=== PATIENT | female | born 1975 | race Caucasian/White ===

== ENCOUNTER 2016-10-10 09:41 | Emergency (ER) | payer SELFPAY ==
[~2016-10-10] VITALS: Ht 167.6 cm; Wt 81.6 kg
[2016-10-10 10:00] VITALS: BP 134/68
--- NOTE | 2016-10-10 10:12 | PHYS DOC ---
Past Medical History Past Medical History: Asthma, Other Additional Past Medical Histor: chronic back pain Past Surgical History: Cholecystectomy, Tonsillectomy Alcohol Use: Occasionally Drug Use: None Adult General Chief Complaint Chief Complaint: HAND PROBLEM HPI HPI Patient is a 41 year old female presents to the emergency department states she was walking down the [place] of her mobile home when she tripped over her animal falling hitting her left hand on furniture. Patient states she is having pain and discomfort along the 5th metacarpal area. Patient with good sensation to the left hand. Patient states she is right hand dominant. Review of Systems Review of Systems Constitutional: Denies fever or chills [] Eyes: Denies change in visual acuity, redness, or eye pain [] HENT: Denies nasal congestion or sore throat [] Respiratory: Denies cough or shortness of breath [] Cardiovascular: No additional information not addressed in HPI [] GI: Denies abdominal pain, nausea, vomiting, bloody stools or diarrhea [] : Denies dysuria or hematuria [] Musculoskeletal: Denies back pain. C/o left hand pain Integument: Denies rash or skin lesions [] Neurologic: Denies headache, focal weakness or sensory changes [] Endocrine: Denies polyuria or polydipsia [] Allergies Allergies Allergies Coded Allergies Type Severity Reaction Last Updated Verified morphine Allergy Intermediate Itching 10/27/13 Yes Physical Exam Physical Exam Constitutional: Well developed, well nourished, no acute distress, non-toxic appearance. [] HENT: Normocephalic, atraumatic, bilateral external ears normal, oropharynx moist, no oral exudates, nose normal. [] Eyes: PERRLA, EOMI, conjunctiva normal, no discharge. [] Neck: Normal range of motion, no tenderness, supple, no stridor. [] Cardiovascular:Heart rate regular rhythm, no murmur [] Lungs & Thorax: Bilateral breath sounds clear to auscultation [] Abdomen: Bowel sounds normal, soft, no tenderness, no masses, no pulsatile masses. [] Skin: Warm, dry, no erythema, no rash. [] Back: No tenderness Extremities: Left hand tenderness noted along the 5th metacarpal area with swelling noted, no discoloration noted, no cyanosis, no clubbing, ROM intact, no edema. Good sensation noted to the fingers, patient with full ROM of the left fingers. Neurologic: Alert and oriented X 3, normal motor function, normal sensory function, no focal deficits noted. [] Psychologic: Affect normal, judgement normal, mood normal. [] Current Patient Data Vital Signs Vital Signs Date Time Temp Pulse Resp B/P (MAP) Pulse Ox O2 Delivery O2 Flow Rate FiO2 10/10/16 10:00 98.2 97 18 100 Room Air 98.2 EKG EKG [] Radiology/Procedures Radiology/Procedures [][facility] [address] [place] [address] IMAGING REPORT Signed PATIENT: TARA BARNETT ACCOUNT: [id number] : 1975 LOCATION: ER AGE: 41 SEX: F EXAM STATUS: PRE ER ORD. PHYSICIAN: MAVIS DURAN APRN REASON: tripped hitting hand, hand pain and discomfort PROCEDURE: HAND LEFT 3V Indication: Pain after a fall. Technique: 3 views of the left hand are submitted for review. No comparison is available. Findings: There is an acute traumatic oblique fracture of the fifth metacarpal. There is no extension into the articular surface or significant displacement or angulation. An additional fracture is not identified. Impression: Acute traumatic fracture of the fifth metacarpal. DICTATED and SIGNED BY: BENJA JACOBSON MD DATE: 10/10/16 1006 CC: MAVIS DURAN APRN; NO PCP ~ Course & Med Decision Making Course & Med Decision Making Pertinent Labs and Imaging studies reviewed. (See chart for details) Fracture noted along the 5th metacarpal area. Patient will be placed in ulnar gutter splint. Recommend ice packs on 20 minutes and off 20 minutes several times a day. Elevation as much as possible. Keep the splint in place until you followup with orthopedic. Shins test was negative on encourage her to take ibuprofen 800 mg every 8 hours to help with inflammation and swelling. We' ll also provide her with hydrocodone for severe pain and discomfort. She was instructed this medication will cause drowsiness do not take any be alert and oriented. Patient will be discharged home in stable condition. She is provided as mentioned with orthopedic name and number to follow up with. She was provided with signs and symptoms to return back to emergency department. [] Dragon Disclaimer Dragon Disclaimer This electronic medical record was generated, in whole or in part, using a voice recognition dictation system. Departure Departure Impression: Primary Impression: Fracture of fifth metacarpal bone of left hand Disposition: 01 HOME, SELF-CARE Condition: STABLE Referrals: NO PCP (PCP) BRIGITTE RESENDEZ II, MD Patient Instructions: Hand Fracture, Metacarpals, [id number] Additional Instructions: Activity as tolerated 800 mg every 8 hours with food stop taking few develop an upset stomach. Hydrocodone for severe pain and discomfort. This medication will cause drowsiness do not take any be alert and oriented. Ice packs on 20 minutes and off 20 minutes several times a day Elevation as much as possible Keep the splint in place until you followup with orthopedic Return to emergency department as needed for signs and symptoms that become worse. Scripts Hydrocodone/Apap 5-325 (NORCO 5-325 TABLET) 1 Each Tablet 1 TAB PO PRN Q6HRS Y for PAIN, #15 TAB 0 Refills Prov: MAVIS DURAN APRN 10/10/16 Splinting Splinting : Location: left hand/wrist Hand-Made Type: orthoglass Splint: ulnar Pre-Proc Neuro Vasc Exam: normal Post-Proc Neuro Vasc Exam: normal MAVIS DURAN APRN October 10, 2016 10:12
[2016-10-10] MEDS ORDERED: HYDR-971 PO (10:49)
[2016-10-10] MEDS ORDERED: HYDROcodone/APAP 5/325MG 1 TAB TABLET PO ONE (11:00)
== END 2016-10-10 11:04 | disposition home or self-care (01) ==
LOC: ER 10:35
DX: S62.307A Unspecified fracture of fifth metacarpal bone, left hand, initial encounter for closed fracture (principal); J45.909 Unspecified asthma, uncomplicated; Z88.5 Allergy status to narcotic agent; W01.0XXA Fall on same level from slipping, tripping and stumbling without subsequent striking against object, initial encounter; Y93.89 Activity, other specified; Y99.8 Other external cause status; Y92.028 Other place in mobile home as the place of occurrence of the external cause
CPT/HCPCS: 29075; 73130; 81025; 84703; 99284-25

== ENCOUNTER 2016-11-18 14:24 | Emergency (ER) | payer SELFPAY ==
[~2016-11-18] VITALS: Ht 167.6 cm; Wt 83.9 kg
[~2016-11-18 14:24] MED LIST: HYDR-971 PO
[2016-11-18 14:30] VITALS: BP 141/73
[2016-11-18] MEDS ORDERED: fentaNYL PF VIAL 100 MCG/2 ML VIAL IM ONE (15:00)
[2016-11-18] MEDS ORDERED: LIDOCAINE 1% / SOD BICARB 8.4% 20 ML VIAL. IJ ONE (15:00)
[2016-11-18] MEDS ORDERED: SULF1TAB24 PO (16:00)
[2016-11-18] MEDS ORDERED: HYDR-971 PO (16:00)
--- NOTE | 2016-11-18 16:00 | PHYS DOC ---
Past Medical History Past Medical History: Asthma, Other Additional Past Medical Histor: chronic back pain Past Surgical History: Cholecystectomy, Tonsillectomy Alcohol Use: Rarely Drug Use: None Adult General Chief Complaint Chief Complaint: ABSCESS HPI HPI Patient is a 41 year old female who presents with an abscess on the left pubic region that she's had for 4 days. Patient denies any fever. Review of Systems Review of Systems Constitutional: Denies fever or chills [] Eyes: Denies change in visual acuity, redness, or eye pain [] HENT: Denies nasal congestion or sore throat [] Musculoskeletal: Denies back pain or joint pain [] Integument: Abscess to the left pubic region Neurologic: Denies headache, focal weakness or sensory changes [] Endocrine: Denies polyuria or polydipsia [] Current Medications Current Medications Current Medications Medications (Trade) Dose Ordered Sig/J Luis Start Time Stop Time Status Last Admin Dose Admin Fentanyl Citrate (Fentanyl 2ml Vial) 50 mcg 1X ONCE 11/18/16 15:00 11/18/16 15:01 DC 11/18/16 14:53 50 MCG Lidocaine/Sodium Bicarbonate (Buffered Lidocaine 1%) 20 ml 1X ONCE 11/18/16 15:00 11/18/16 15:01 DC 11/18/16 14:52 20 ML Allergies Allergies Allergies Coded Allergies Type Severity Reaction Last Updated Verified morphine Allergy Intermediate Itching 10/27/13 Yes Physical Exam Physical Exam Constitutional: Well developed, well nourished, no acute distress, non-toxic appearance. [] HENT: Normocephalic, atraumatic, bilateral external ears normal, oropharynx moist, no oral exudates, nose normal. [] Eyes: PERRLA, EOMI, conjunctiva normal, no discharge. [] Skin: Left pubic with a moderately indurated area approximately 5 x 5 cm. The area is warm tender to palpate. The area has cellulitis. The area is fluctuant. Back: No tenderness, no CVA tenderness. [] Extremities: No tenderness, no cyanosis, no clubbing, ROM intact, no edema. [] Neurologic: Alert and oriented X 3, normal motor function, normal sensory function, no focal deficits noted. [] Psychologic: Affect normal, judgement normal, mood normal. [] Current Patient Data Vital Signs Vital Signs Date Time Temp Pulse Resp B/P (MAP) Pulse Ox O2 Delivery O2 Flow Rate FiO2 11/18/16 15:28 16 Room Air 11/18/16 14:30 98.4 99 97 98.4 EKG EKG [] Radiology/Procedures Radiology/Procedures Indication: abscess left pubic region Procedure: The patient was positioned appropriately. Local anesthesia was buffered lidocaine. An incision was then made over the apex of the lesion and mild amount of yellow bloody material was expressed. The drainage cavity was irrigated and packed with sterile gauze. The patients tetanus status updated as needed. The patient tolerated the procedure well. Complications: none.[] Course & Med Decision Making Course & Med Decision Making Pertinent Labs and Imaging studies reviewed. (See chart for details) Patient has an abscess and cellulitis of the left pubic region that was drained by me as noted in procedures. This could've come from ingrown hairs. She was put on Bactrim. Tetanus is up-to-date. She is to return to the ED in 2 days for wound check and packing removal. Dragon Disclaimer Dragon Disclaimer This electronic medical record was generated, in whole or in part, using a voice recognition dictation system. Departure Departure Impression: Primary Impression: Abscess of pubic region Disposition: 01 HOME, SELF-CARE Condition: STABLE Referrals: NO PCP (PCP) Follow up with the Ed in 2 days for wound check Patient Instructions: Abscess, Care After Additional Instructions: You have abscess of the left pubic. Complete your antibiotics Apply warm compresses to the area twice a day Return to the Ed in 2 days for packing removal and wound check Scripts Hydrocodone/Apap 5-325 (NORCO 5-325 TABLET) 1 Each Tablet 1-2 TAB PO Q4-6HRS, #14 TAB Prov: JARRETT BOB APRN 11/18/16 Sulfamethoxazole/Trimethoprim (BACTRIM DS TABLET) 1 Each Tablet 1 TAB PO BID, #20 TAB Prov: JARRETT BOB APRN 11/18/16 JARRETT BOB APRN Nov 18, 2016 16:00
== END 2016-11-18 16:09 | disposition home or self-care (01) ==
LOC: ER 14:24
DX: L02.214 Cutaneous abscess of groin (principal); G89.29 Other chronic pain; J45.909 Unspecified asthma, uncomplicated; Z90.49 Acquired absence of other specified parts of digestive tract; Z88.5 Allergy status to narcotic agent
CPT/HCPCS: 10060; 96372; 99283; J3010

== ENCOUNTER 2016-11-21 18:33 | Emergency (ER) | payer SELFPAY ==
[~2016-11-21 18:33] MED LIST changes: +SULF1TAB24 PO
[2016-11-21 19:11] VITALS: BP 139/78
--- NOTE | 2016-11-21 19:54 | PHYS DOC ---
Past Medical History Past Medical History: Asthma, Other Additional Past Medical Histor: chronic back pain Past Surgical History: Cholecystectomy, Tonsillectomy Alcohol Use: Rarely Drug Use: None Adult General Chief Complaint Chief Complaint: WOUND RECHECK/SUTURE REMOVAL HPI HPI Patient is a 41 year old female who presents for wound check for an abscess that I drained 3 days ago. Patient states the wound is healing well and the packing is still in place. Review of Systems Review of Systems Constitutional: Denies fever or chills [] Eyes: Denies change in visual acuity, redness, or eye pain [] Musculoskeletal: Denies back pain or joint pain [] Integument: Wound check for left groin abscess Neurologic: Denies headache, focal weakness or sensory changes [] Endocrine: Denies polyuria or polydipsia [] Allergies Allergies Allergies Coded Allergies Type Severity Reaction Last Updated Verified morphine Allergy Intermediate Itching 10/27/13 Yes Physical Exam Physical Exam Constitutional: Well developed, well nourished, no acute distress, non-toxic appearance. [] HENT: Normocephalic, atraumatic, bilateral external ears normal, oropharynx moist, no oral exudates, nose normal. [] Skin: Left pubic area with an open wound with packing material. The packing material has mild amount of drainage. There is small amount of erythema around the wound. This erythema is less than the last time I saw patient. There is no warmth over the area. Back: No tenderness, no CVA tenderness. [] Extremities: No tenderness, no cyanosis, no clubbing, ROM intact, no edema. [] Neurologic: Alert and oriented X 3, normal motor function, normal sensory function, no focal deficits noted. [] Psychologic: Affect normal, judgement normal, mood normal. [] Current Patient Data Vital Signs Vital Signs Date Time Temp Pulse Resp B/P (MAP) Pulse Ox O2 Delivery O2 Flow Rate FiO2 11/21/16 19:11 98.4 110 18 96 Room Air 98.4 EKG EKG [] Radiology/Procedures Radiology/Procedures [] Course & Med Decision Making Course & Med Decision Making Pertinent Labs and Imaging studies reviewed. (See chart for details) Patient is in the ED for wound check for an abscess that I drained 3 days ago. Packing was removed from the wound . The area is healing very well. She was encouraged to keep it clean and dry. She is to follow-up with her own PCP in 1- 2 weeks and complete her antibiotics. Tadeo Disclaimer Tadeo Disclaimer This electronic medical record was generated, in whole or in part, using a voice recognition dictation system. Departure Departure Impression: Primary Impression: Wound check, abscess Disposition: 01 HOME, SELF-CARE Condition: STABLE Referrals: NO PCP (PCP) Follow-up with your doctor in 1-2 weeks as needed Patient Instructions: Abscess, Care After Additional Instructions: Keep your wound area clean and dry. Continue taking antibiotics until completed. Follow-up with your doctor in 1-2 weeks. Come back to the ED for any concerning symptoms. JARRETT BOB APRN Nov 21, 2016 19:54
== END 2016-11-21 19:57 | disposition home or self-care (01) ==
LOC: ER 18:33
DX: Z48.01 Encounter for change or removal of surgical wound dressing (principal); L02.214 Cutaneous abscess of groin; J45.909 Unspecified asthma, uncomplicated; G89.29 Other chronic pain; Z88.5 Allergy status to narcotic agent
CPT/HCPCS: 99281

== ENCOUNTER 2016-12-01 19:00 | Inpatient (IN) | payer SELFPAY ==
[~2016-12-01] VITALS: Ht 167.6 cm; Wt 84.4 kg
[2016-12-01] MEDS ORDERED: fentaNYL PF VIAL 100 MCG/2 ML VIAL IV ONE (20:15)
[2016-12-01] MEDS ORDERED: IV NORMAL SALINE 500ML BAG 500 ML IV PRN (20:15)
[2016-12-01] MEDS: IV NORMAL SALINE 1000ML BAG 1,000 ML IV SCH ×3 (20:32→21:03)
[2016-12-01 20:50] LABS: BASO # 0.1 x10^3/uL (0.0-0.2); BASO % 1 % (0-3); EOS % 1 % (0-3); HEMATOCRIT 39.8 % (36.0-47.0); HEMOGLOBIN 13.1 g/dL (12.0-15.5); LYMPH # 1.8 x10^3/uL (1.0-4.8); LYMPH % 12 % (24-48); MEAN CORPUSCULAR HEMOGLOBIN 24 pg (25-35); MEAN CORPUSCULAR HGB CONC 33 g/dL (31-37); MEAN CORPUSCULAR VOLUME 74 fL (79-100); MONO % 6 % (0-9); NEUT % 81 % (31-73); PLATELET COUNT 288 x10^3/uL (140-400); RED BLOOD COUNT 5.42 x10^6/uL (3.50-5.40); RED CELL DISTRIBUTION WIDTH 18.7 % (11.5-14.5); WHITE BLOOD COUNT 15.3 x10^3/uL (4.0-11.0)
--- NOTE | 2016-12-01 21:13 | PHYS DOC ---
Past Medical History Past Medical History: Asthma, Other Additional Past Medical Histor: chronic back pain Past Surgical History: Cholecystectomy, Tonsillectomy Alcohol Use: Rarely Drug Use: None Adult General Chief Complaint Chief Complaint: ABSCESS HPI HPI Patient is a 41 year old female who presents with an abscess on the left groin that began 4 days ago. Patient was in the ED 14 days ago and was seen for an abscess on the left pubic area that we opened up and drained. She was discharged on Bactrim. Patient denies any fever. Review of Systems Review of Systems Constitutional: Denies fever or chills [] Eyes: Denies change in visual acuity, redness, or eye pain [] GI: Denies abdominal pain, nausea, vomiting, bloody stools or diarrhea [] : Denies dysuria or hematuria [] Musculoskeletal: Denies back pain or joint pain [] Integument: Left groin abscess Neurologic: Denies headache, focal weakness or sensory changes [] Endocrine: Denies polyuria or polydipsia [] Current Medications Current Medications Current Medications Medications (Trade) Dose Ordered Sig/J Luis Start Time Stop Time Status Last Admin Dose Admin Fentanyl Citrate (Fentanyl 2ml Vial) 50 mcg 1X ONCE 12/01/16 20:15 12/01/16 20:16 DC 12/01/16 20:33 50 MCG Sodium Chloride 500 ml @ 1,000 mls/hr PRN Q30MIN PRN 12/01/16 20:15 12/01/16 22:37 1,000 MLS/HR Allergies Allergies Allergies Coded Allergies Type Severity Reaction Last Updated Verified morphine Allergy Intermediate Itching 10/27/13 Yes Physical Exam Physical Exam Constitutional: Well developed, well nourished, no acute distress, non-toxic appearance. [] HENT: Normocephalic, atraumatic, bilateral external ears normal, oropharynx moist, no oral exudates, nose normal. [] Eyes: PERRLA, EOMI, conjunctiva normal, no discharge. [] Neck: Normal range of motion, no tenderness, supple, no stridor. [] Cardiovascular:Heart rate regular rhythm, no murmur [] Lungs & Thorax: Bilateral breath sounds clear to auscultation [] Abdomen: Bowel sounds normal, soft, no tenderness, no masses, no pulsatile masses. [] Skin: Left groin with an indurated area approximately 5 x 3 cm. The area has moderate cellulitis. It warm to touch. The center of the area is fluctuant but the surrounding area is very firm. Back: No tenderness, no CVA tenderness. [] Extremities: No tenderness, no cyanosis, no clubbing, ROM intact, no edema. [] Neurologic: Alert and oriented X 3, normal motor function, normal sensory function, no focal deficits noted. [] Psychologic: Affect normal, judgement normal, mood normal. [] Current Patient Data Vital Signs Vital Signs Date Time Temp Pulse Resp B/P (MAP) Pulse Ox O2 Delivery O2 Flow Rate FiO2 12/01/16 20:03 98.6 104 18 138/71 (93) 95 Room Air 98.6 EKG EKG [] Radiology/Procedures Radiology/Procedures [] Course & Med Decision Making Course & Med Decision Making Pertinent Labs and Imaging studies reviewed. (See chart for details) Patient is in the ED with an abscess on the left groin. She was seen in the ED 14 days ago and was treated with Bactrim for another abscess on the left pubic area. Patient will be admitted considering she just finished antibiotic treatment 4 days ago and has another abscess. Sepsis protocol labs and IV fluids and antibiotics were ordered 20:28Consulted with Dr. Reyes who accepted patient for admission 20:[address] Cleveland who will follow-up with patient. Admitted prior to labs being done but in stable condition. Dragon Disclaimer Dragon Disclaimer This electronic medical record was generated, in whole or in part, using a voice recognition dictation system. Departure Departure Impression: Primary Impression: Abscess of left groin Additional Impression: Cellulitis of left groin Disposition: ADMITTED INPATIENT Admitting Physician: Sumi Reyes Condition: STABLE Referrals: NO PCP (PCP) Problem Qualifiers JARRETT BOB [employer] Dec 01, 2016 21:13
[2016-12-01] MEDS ORDERED: IV NORMAL SALINE 1000ML BAG 1,000 ML IV ONE ×2 (21:15→22:30)
--- NOTE | 2016-12-01 22:26 | PDOC1 ---
History and Physical Date of Admission Date of Admission DATE: 12/01/16 TIME: 22:18 Identification/Chief Complaint Chief Complaint groin pain Problems: Source Source: Chart review, Patient History of Present Illness History of Present Illness left groin abcess, has gotten worse over the past few days, acute pain, and marked induration the patient was in the ER 2 weeks ago for similar, but abcess was medial, nearer the labia, and the area now that is markedly indurated was thought to be a swollen lymph node and was not drained. marked pain, chills, sweats and myalgias, pain was 10, now 8/10 after IV fentanyl she is also grieving a recent miscarriage from about 1 month ago, that is worried was incomplete, and she has not had a D and C Past Medical History Cardiovascular: No pertinent hx Pulmonary: No pertinent hx GI: No pertinent hx Heme/Onc: No pertinent hx Hepatobiliary: No pertinent hx Psych: No pertinent hx Rheumatologic: No pertinent hx Infectious disease: Other ENT: No pertinent hx Renal/: No pertinent hx Endocrine: No pertinent hx Family History Family History: Hypertension Social History Smoke: <1 pack per day ALCOHOL: none Drugs: None Current Problem List Problem List Problems Medical Problems: (1) Abscess of left groin Status: Acute (2) Cellulitis of left groin Status: Acute Problems: Current Medications Current Medications Current Medications Sodium Chloride 1,000 ml @ 2,520 mls/hr Q24M IV Last administered on 20:32; Start 12/01/16 at 20:15; Stop 12/01/16 at 21:15; Status DC Sodium Chloride 500 ml @ 1,000 mls/hr PRN Q30MIN PRN IV SEE COMMENTS; Start at 20:15 Fentanyl Citrate (Fentanyl 2ml Vial) 50 mcg 1X ONCE IV Last administered on 20:33; Start 12/01/16 at 20:15; Stop 12/01/16 at 20:16; Status DC Ondansetron HCl (Zofran) 4 mg PRN Q8HRS PRN IV NAUSEA/VOMITING; Start 12/01/16 at 21:15; Stop 12/02/16 at 21:14 Fentanyl Citrate (Fentanyl 2ml Vial) 50 mcg PRN Q2HR PRN IV SEVERE PAIN; Start 12/01/16 at 21:15; Stop 12/02/16 at 21:14 Clindamycin Phosphate 50 ml @ 100 mls/hr Q8HRS IV ; Start 12/01/16 at 22:00 Ceftriaxone Sodium 1 gm/ Sodium Chloride 50 ml @ 100 mls/hr Q24H IV ; Start 05/09 at 21:00 Sodium Chloride 1,000 ml @ 125 mls/hr 1X ONCE IV ; Start 12/01/16 at 21:15; Stop 12/02/16 at 05:14 Ceftriaxone Sodium 50 ml @ 100 mls/hr 1X ONCE IV ; Start 12/01/16 at 21:30; Stop 12/01/16 at 21:59; Status DC Oxycodone/ Acetaminophen (Percocet 7.5/ 325) 1 tab PRN Q4HRS PRN PO SEVERE PAIN ; Start 12/01/16 at 22:00 Active Scripts Active Call 5-325 Tablet (Acetaminophen/Hydrocodone Bitart) 1 Each Tablet 1-2 Tab PO Q4-6HRS Bactrim Ds Tablet (Sulfamethoxazole/Trimethoprim) 1 Each Tablet 1 Tab PO BID Call 5-325 Tablet (Acetaminophen/Hydrocodone Bitart) 1 Each Tablet 1 Tab PO PRN Q6HRS PRN Allergies Allergies: Coded Allergies: morphine (Verified Allergy, Intermediate, Itching, 10/27/13) ROS General: YES: Chills, Night Sweats, Fatigue, No: Malaise, Appetite, Other PSYCHOLOGICAL ROS: YES: Irritablity, Obsessive thoughts, Sleep disturbances, No: Anxiety, Behavioral Disorder, Concentration difficultie, Decreased libido , Depression, Disorientation, Hallucinations, Hostility, Memory difficulties, Mood Swings, Physical abuse, Sexual abuse, Suicidal ideation Eyes: No Blurry vision, No Decreased vision, No Double vision, No Dry eyes, No Excessive tearing, No Eye Pain, No Itchy Eyes, No Loss of vision, No Photophobia , No Scotomata, No Uses contacts, No Uses glasses, No Other HEENT: No: Heacaches, Visual Changes, Hearing change, Nasal congestion, Nasal discharge, Oral lesions, Sinus pain, Sore Throat, Epistaxis, Sneezing, Snoring, Tinnitus, Vertigo, Vocal changes, Other Respiratory: YES: Cough, No: Hemoptysis, Orthopnea, Pleuritic Pain, Shortness of breath, SOB with excertion, Sputum Changes, Stridor, Tachypnea, Wheezing, Other Cardiovascular: No Chest Pain, No Palpitations, No Orthopnea, No Paroxysmal Noc. Dyspnea, No Edema, No Lt Headedness, No Other Gastrointestinal: No Nausea, No Vomiting, No Abdominal Pain, No Diarrhea, No Constipation, No Melena, No Hematochezia, No Other Genitourinary: No Dysuria, No Frequency, No Incontinence, No Hematuria, No Retention, No Discharge, No Urgency, No Pain, No Flank Pain, No Other, No , No , No , No , No , No , No Musculoskeletal: No Gait Disturbance, No Joint Pain, No Joint Stiffness, No Joint Swelling, No Muscle Pain, No Muscular Weakness, No Pain In:, No Swelling In:, No Other Neurological: No Behavorial Changes, No Bowel/Bladder ControlChng, No Confusion , No Dizziness, No Gait Disturbance, No Headaches, No Impaired Coord/balance, No Memory Loss, No Numbness/Tingling, No Seizures, No Speech Problems, No Tremors, No Visual Changes, No Weakness, No Other Skin: Yes Dry Skin, Yes Lumps, Yes Rash, Yes Other (groin pain), No Eczema, No Hair Changes, No Mole Changes, No Mottling, No Nail Changes, No Pruritus, No Skin Lesion Changes Physical Exam General: Alert, Oriented X3, Cooperative, moderate distress HEENT: Atraumatic, PERRLA, EOMI Lungs: Normal air movement, Other (minor end wheeze) Heart: S1S2, no gallops, no murmurs Rectal Exam: not examined Extremities: No clubbing, No edema, Normal pulses Skin: Other (large very tender area of induration to left groin, productive of white discharge medially, about 6cm across w/ surrounding cellulitis) Neuro: Sensation intact, Cranial nerves 3-12 NL Vitals Vitals Vital Signs Date Time Temp Pulse Resp B/P (MAP) Pulse Ox O2 Delivery O2 Flow Rate FiO2 12/01/16 21:01 94 16 123/73 (90) 95 Room Air 12/01/16 20:03 98.6 98.6 Labs Labs Laboratory Tests Test 12/01/16 20:31 White Blood Count 15.3 x10^3/uL (4.0-11.0) Red Blood Count 5.42 x10^6/uL (3.50-5.40) Hemoglobin 13.1 g/dL (12.0-15.5) Hematocrit 39.8 % (36.0-47.0) Mean Corpuscular Volume 74 fL (79-100) Mean Corpuscular Hemoglobin 24 pg (25-35) Mean Corpuscular Hemoglobin Concent 33 g/dL (31-37) Red Cell Distribution Width 18.7 % (11.5-14.5) Platelet Count 288 x10^3/uL (140-400) Neutrophils (%) (Auto) 81 % (31-73) Lymphocytes (%) (Auto) 12 % (24-48) Monocytes (%) (Auto) 6 % (0-9) Eosinophils (%) (Auto) 1 % (0-3) Basophils (%) (Auto) 1 % (0-3) Neutrophils # (Auto) 12.4 x10^3uL (1.8-7.7) Lymphocytes # (Auto) 1.8 x10^3/uL (1.0-4.8) Monocytes # (Auto) 1.0 x10^3/uL (0.0-1.1) Eosinophils # (Auto) 0.1 x10^3/uL (0.0-0.7) Basophils # (Auto) 0.1 x10^3/uL (0.0-0.2) Erythrocyte Sedimentation Rate 34 (0-25) Lactic Acid Level 2.3 mmol/L (0.4-2.0) C-Reactive Protein, Quantitative 91.3 mg/L (0-3.3) Procalcitonin < 0.10 ng/mL (0.00-0.10) Laboratory Tests Test 12/01/16 20:31 White Blood Count 15.3 x10^3/uL (4.0-11.0) Red Blood Count 5.42 x10^6/uL (3.50-5.40) Hemoglobin 13.1 g/dL (12.0-15.5) Hematocrit 39.8 % (36.0-47.0) Mean Corpuscular Volume 74 fL (79-100) Mean Corpuscular Hemoglobin 24 pg (25-35) Mean Corpuscular Hemoglobin Concent 33 g/dL (31-37) Red Cell Distribution Width 18.7 % (11.5-14.5) Platelet Count 288 x10^3/uL (140-400) Neutrophils (%) (Auto) 81 % (31-73) Lymphocytes (%) (Auto) 12 % (24-48) Monocytes (%) (Auto) 6 % (0-9) Eosinophils (%) (Auto) 1 % (0-3) Basophils (%) (Auto) 1 % (0-3) Neutrophils # (Auto) 12.4 x10^3uL (1.8-7.7) Lymphocytes # (Auto) 1.8 x10^3/uL (1.0-4.8) Monocytes # (Auto) 1.0 x10^3/uL (0.0-1.1) Eosinophils # (Auto) 0.1 x10^3/uL (0.0-0.7) Basophils # (Auto) 0.1 x10^3/uL (0.0-0.2) Erythrocyte Sedimentation Rate 34 (0-25) Lactic Acid Level 2.3 mmol/L (0.4-2.0) C-Reactive Protein, Quantitative 91.3 mg/L (0-3.3) Procalcitonin < 0.10 ng/mL (0.00-0.10) VTE Prophylaxis Ordered VTE Prophylaxis Devices: Yes VTE Pharmacological Prophylaxi: No Assessment/Plan Assessment/Plan sepsis cellulitis w/ abcess, groin left groin abcess cx taken in ER, rocephin and clinda started surg consulted, will need surgical I+D recent miscarriage, consult [facility] for eval normal grieving response tobaccoism, I offered replacement, recommended cessation admit NOLAN GRIMALDO MD Dec 01, 2016 22:26
[2016-12-01] MEDS ORDERED: NICOTINE 14MG PATCH. TD PRN (22:30)
[2016-12-01] MEDS ORDERED: ALBUTEROL SULFATE 2.5 MG/3 ML NEBU. NEB PRN (22:30)
[2016-12-01] MEDS: ONDANSETRON PF 4 MG/2 ML VIAL. IV PRN (22:40)
[2016-12-01] MEDS: oxyCODONE/APAP 7.5/325 1 TAB TABLET PO PRN (22:41)
[2016-12-01 22:48] VITALS: BP 117/76
[2016-12-01] MEDS ORDERED: KETOROLAC TROMETHAMINE 30 MG/ML INJ. IV ONE (23:00)
[2016-12-01] MEDS ORDERED: IPRATRPIUM/ALBUTEROL 0.5/2.5MG 3 ML NEBU. NEB ONE (23:00)
[2016-12-02] MEDS: CLINDAMYCIN 900MG PREMIX 50 ML IV SCH ×4 (00:20→22:33)
--- NOTE | 2016-12-02 02:17 | ACF ---
Admission Forms Criteria CELLULITIS Clinical Indications for Admission to Inpatient Care (Place 'X' for any and all applicable criteria): Admission is indicated for ANY ONE of the following(1)(2)(3)(4)(5): [ ]I. Limb-threatening infection [ ]II. High-risk comorbid condition as indicated by ANY ONE of the following: [ ]a) Uncontrolled diabetes (eg, HbA1c greater than 10% (0.1)) [ ]b) Cirrhosis [ ]c) Neutropenia [ ]d) Asplenia [ ]e) Immunosuppression [ ]f) Symptomatic heart failure [ ]III. Failure of outpatient therapy as indicated by ALL of the following: [ ]a) Progression or no improvement after adequate trial (minimum of 48 hours, with longer period for stable lower extremity infection) [ ]b) Adequate antibiotic regimen as indicated by use of ANY ONE of the following: [ ]i) First-generation cephalosporin (e.g., cephalexin) [ ]ii) Antistaphylococcal penicillin (e.g., dicloxacillin) [ ]iii) Penicillin-allergic patient regimen (clindamycin, extended-spectrum fluoroquinolone, or doxycycline) [ ]iv) Resistant organism (eg, methicillin-resistant Staphylococcus aureus) regimen (6) [ ]c) Outpatient intravenous therapy regimen is not appropriate due to ANY ONE of the following. (7)(8)(9)(10): [ ]i) It was tried and was not successful (eg, progression of infection). [ ]ii) It is not available or cannot be arranged in a clinically appropriate time frame (e.g., the next day). [ ]iii) Clinical presentation (eg, acuity of infection, rapidity of progression, confirmed or suspected bacteremia) is judged to require ALL of the following: [ ]1) Immediate initiation of intravenous therapy ( eg, cannot wait for next day) [ ]2) Intensity of patient monitoring and observation (eg, vital sign measurement, checks for infection progression) that cannot be provided at other than inpatient level of care [ ]IV. Mental status changes [ ]V. Bacteremia [X]. Hemodynamic instability [ ]VII. Suspected necrotizing soft tissue infection (e.g., gas in tissue)(11)( 12) [ ]VIII. Orbital infection (13)(14) [ ]IX. Associated surgical procedure (e.g., abscess drainage, debridement) not amenable to outpatient, emergency department, or observation care [ ]X. Cutaneous gangrene [ ]XI. High fever (temperature greater than 39.5 degrees C (103.1 degrees F) (oral)) not responsive to outpatient, emergency department, or observation care therapy [ ]XIII. Inpatient admission required rather than observation care (Also use Cellulitis: Observation Care as appropriate) because of ANY ONE of the following : [ ]a) Periorbital or perineal infection that is severe or worsening [ ]b) Severe pain requiring acute inpatient management [ ]c) IV fluid to replace significant ongoing (e.g., for over 24 hours) losses (greater than 3L/m2 per day) [ ]d) Compartment syndrome monitoring (17) [ ]e) Strict or protective (eg, laminar flow) isolation [ ]f) Urgent debridement or skin grafting [ ]g) Bone or joint debridement [ ]h) Immediate inpatient surgery [ ]i) Other condition, treatment or monitoring requiring inpatient admission Extended stay beyond goal length of stay may be needed for (1)(18): [ ]a) Necrotizing soft tissue infection or fasciitis [ ]b) Gram-negative infection [ ]c) Methicillin-resistant Staphylococcal aureus (MRSA) infection [ ]d) Peripheral venous insufficiency with cellulitis [ ]e) Extensive edema [ ]f) Sepsis or continued Hemodynamic instability [ ]g) Continued high fever or mental status change [ ]h) Bacteremia [ ]i) Active serious comorbid conditions ( eg, heart failure, renal insufficiency) The original [employer] content created by [employer] has been revised. The portions of the content which have been revised are identified through the use of italic text or in bold, and [facility] has neither reviewed nor approved the modified material. All other unmodified content is copyright [facility] Please see references footnoted in the original [facility] edition 2016 Admission Criteria Met?: Yes COLLEEN NAVA Dec 02, 2016 02:17
[2016-12-02 03:00] VITALS: BP 105/57
[2016-12-02] MEDS: fentaNYL PF VIAL 100 MCG/2 ML VIAL IV PRN ×3 (04:18→21:07)
[2016-12-02 06:04] LABS: BASO # 0.1 x10^3/uL (0.0-0.2); BASO % 1 % (0-3); EOS % 1 % (0-3); HEMATOCRIT 36.3 % (36.0-47.0); HEMOGLOBIN 12.1 g/dL (12.0-15.5); LYMPH # 2.6 x10^3/uL (1.0-4.8); LYMPH % 37 % (24-48); MEAN CORPUSCULAR HEMOGLOBIN 25 pg (25-35); MEAN CORPUSCULAR HGB CONC 33 g/dL (31-37); MEAN CORPUSCULAR VOLUME 74 fL (79-100); MONO % 10 % (0-9); NEUT % 52 % (31-73); PLATELET COUNT 235 x10^3/uL (140-400); RED CELL DISTRIBUTION WIDTH 18.7 % (11.5-14.5)
[2016-12-02] MEDS: KETOROLAC 15 MG/ML VIAL. IV PRN ×2 (06:05→16:30)
[2016-12-02 06:19] LABS: CALCIUM 7.8 mg/dL (8.5-10.1); CREATININE 0.7 mg/dL (0.6-1.0); GFR 92.7; POTASSIUM 3.5 mmol/L (3.5-5.1)
[2016-12-02 07:00] VITALS: BP_SYST 100; BP_SYST 93; BP_SYST 96; BP_DIAS 48; BP_DIAS 58
[2016-12-02] MEDS: VITAMIN B12,B9,B6 COMPLEX 1 TABLET. PO SCH (09:00)
[2016-12-02] MEDS ORDERED: PHENAZOPYRIDINE 200 MG TABLET. PO ONE (09:30)
--- NOTE | 2016-12-02 09:42 | PDOC ---
PROGRESS NOTES Chief Complaint Chief Complaint sepsis cellulitis w/ abcess, groin recent miscarriage, tobaccoism, History of Present Illness History of Present Illness cx taken in ER, emanuelhin and clinda started surg consulted, will need surgical I+D burning urination today, additional IV fluid, Azo, Vitals Vitals Vital Signs Date Time Temp Pulse Resp B/P (MAP) Pulse Ox O2 Delivery O2 Flow Rate FiO2 12/02/16 07:00 96.6 76 18 93/58 (70) 96 Room Air 96.6 Physical Exam General: Alert, Oriented X3, Cooperative, moderate distress Heart: Regular rate Lungs: Clear Abdomen: Normal bowel sounds Extremities: No clubbing, No edema, Normal pulses Skin: Other (large very tender area of induration to left groin, productive of white discharge medially, about 6cm across w/ surrounding cellulitis) Labs LABS Laboratory Tests Test 12/01/16 20:31 12/01/16 23:00 12/02/16 05:25 White Blood Count 15.3 x10^3/uL (4.0-11.0) 7.0 x10^3/uL (4.0-11.0) Red Blood Count 5.42 x10^6/uL (3.50-5.40) 4.90 x10^6/uL (3.50-5.40) Hemoglobin 13.1 g/dL (12.0-15.5) 12.1 g/dL (12.0-15.5) Hematocrit 39.8 % (36.0-47.0) 36.3 % (36.0-47.0) Mean Corpuscular Volume 74 fL (79-100) 74 fL (79-100) Mean Corpuscular Hemoglobin 24 pg (25-35) 25 pg (25-35) Mean Corpuscular Hemoglobin Concent 33 g/dL (31-37) 33 g/dL (31-37) Red Cell Distribution Width 18.7 % (11.5-14.5) 18.7 % (11.5-14.5) Platelet Count 288 x10^3/uL (140-400) 235 x10^3/uL (140-400) Neutrophils (%) (Auto) 81 % (31-73) 52 % (31-73) Lymphocytes (%) (Auto) 12 % (24-48) 37 % (24-48) Monocytes (%) (Auto) 6 % (0-9) 10 % (0-9) Eosinophils (%) (Auto) 1 % (0-3) 1 % (0-3) Basophils (%) (Auto) 1 % (0-3) 1 % (0-3) Neutrophils # (Auto) 12.4 x10^3uL (1.8-7.7) 3.6 x10^3uL (1.8-7.7) Lymphocytes # (Auto) 1.8 x10^3/uL (1.0-4.8) 2.6 x10^3/uL (1.0-4.8) Monocytes # (Auto) 1.0 x10^3/uL (0.0-1.1) 0.7 x10^3/uL (0.0-1.1) Eosinophils # (Auto) 0.1 x10^3/uL (0.0-0.7) 0.1 x10^3/uL (0.0-0.7) Basophils # (Auto) 0.1 x10^3/uL (0.0-0.2) 0.1 x10^3/uL (0.0-0.2) Erythrocyte Sedimentation Rate 34 (0-25) Lactic Acid Level 2.3 mmol/L (0.4-2.0) 1.1 mmol/L (0.4-2.0) C-Reactive Protein, Quantitative 91.3 mg/L (0-3.3) Procalcitonin < 0.10 ng/mL (0.00-0.10) Sodium Level 142 mmol/L (136-145) Potassium Level 3.5 mmol/L (3.5-5.1) Chloride Level 106 mmol/L (98-107) Carbon Dioxide Level 27 mmol/L (21-32) Anion Gap 9 (6-14) Blood Urea Nitrogen 7 mg/dL (7-20) Creatinine 0.7 mg/dL (0.6-1.0) Estimated GFR (Cockcroft-Gault) 92.7 Glucose Level 165 mg/dL (70-99) Calcium Level 7.8 mg/dL (8.5-10.1) Review of Systems Review of Systems going pain urinary pain no n.v.d + dry mouth Assessment and Plan Assessmemt and Plan Problems Medical Problems: (1) Abscess of left groin Status: Acute (2) Cellulitis of left groin Status: Acute Problems: Comment Review of Relevant I have reviewed the following items nakul (where applicable) has been applied. Labs Laboratory Tests Test 12/01/16 20:31 12/01/16 23:00 12/02/16 05:25 White Blood Count 15.3 x10^3/uL (4.0-11.0) 7.0 x10^3/uL (4.0-11.0) Red Blood Count 5.42 x10^6/uL (3.50-5.40) 4.90 x10^6/uL (3.50-5.40) Hemoglobin 13.1 g/dL (12.0-15.5) 12.1 g/dL (12.0-15.5) Hematocrit 39.8 % (36.0-47.0) 36.3 % (36.0-47.0) Mean Corpuscular Volume 74 fL (79-100) 74 fL (79-100) Mean Corpuscular Hemoglobin 24 pg (25-35) 25 pg (25-35) Mean Corpuscular Hemoglobin Concent 33 g/dL (31-37) 33 g/dL (31-37) Red Cell Distribution Width 18.7 % (11.5-14.5) 18.7 % (11.5-14.5) Platelet Count 288 x10^3/uL (140-400) 235 x10^3/uL (140-400) Neutrophils (%) (Auto) 81 % (31-73) 52 % (31-73) Lymphocytes (%) (Auto) 12 % (24-48) 37 % (24-48) Monocytes (%) (Auto) 6 % (0-9) 10 % (0-9) Eosinophils (%) (Auto) 1 % (0-3) 1 % (0-3) Basophils (%) (Auto) 1 % (0-3) 1 % (0-3) Neutrophils # (Auto) 12.4 x10^3uL (1.8-7.7) 3.6 x10^3uL (1.8-7.7) Lymphocytes # (Auto) 1.8 x10^3/uL (1.0-4.8) 2.6 x10^3/uL (1.0-4.8) Monocytes # (Auto) 1.0 x10^3/uL (0.0-1.1) 0.7 x10^3/uL (0.0-1.1) Eosinophils # (Auto) 0.1 x10^3/uL (0.0-0.7) 0.1 x10^3/uL (0.0-0.7) Basophils # (Auto) 0.1 x10^3/uL (0.0-0.2) 0.1 x10^3/uL (0.0-0.2) Erythrocyte Sedimentation Rate 34 (0-25) Lactic Acid Level 2.3 mmol/L (0.4-2.0) 1.1 mmol/L (0.4-2.0) C-Reactive Protein, Quantitative 91.3 mg/L (0-3.3) Procalcitonin < 0.10 ng/mL (0.00-0.10) Sodium Level 142 mmol/L (136-145) Potassium Level 3.5 mmol/L (3.5-5.1) Chloride Level 106 mmol/L (98-107) Carbon Dioxide Level 27 mmol/L (21-32) Anion Gap 9 (6-14) Blood Urea Nitrogen 7 mg/dL (7-20) Creatinine 0.7 mg/dL (0.6-1.0) Estimated GFR (Cockcroft-Gault) 92.7 Glucose Level 165 mg/dL (70-99) Calcium Level 7.8 mg/dL (8.5-10.1) Laboratory Tests Test 12/01/16 20:31 12/01/16 23:00 12/02/16 05:25 White Blood Count 15.3 x10^3/uL (4.0-11.0) 7.0 x10^3/uL (4.0-11.0) Red Blood Count 5.42 x10^6/uL (3.50-5.40) 4.90 x10^6/uL (3.50-5.40) Hemoglobin 13.1 g/dL (12.0-15.5) 12.1 g/dL (12.0-15.5) Hematocrit 39.8 % (36.0-47.0) 36.3 % (36.0-47.0) Mean Corpuscular Volume 74 fL (79-100) 74 fL (79-100) Mean Corpuscular Hemoglobin 24 pg (25-35) 25 pg (25-35) Mean Corpuscular Hemoglobin Concent 33 g/dL (31-37) 33 g/dL (31-37) Red Cell Distribution Width 18.7 % (11.5-14.5) 18.7 % (11.5-14.5) Platelet Count 288 x10^3/uL (140-400) 235 x10^3/uL (140-400) Neutrophils (%) (Auto) 81 % (31-73) 52 % (31-73) Lymphocytes (%) (Auto) 12 % (24-48) 37 % (24-48) Monocytes (%) (Auto) 6 % (0-9) 10 % (0-9) Eosinophils (%) (Auto) 1 % (0-3) 1 % (0-3) Basophils (%) (Auto) 1 % (0-3) 1 % (0-3) Neutrophils # (Auto) 12.4 x10^3uL (1.8-7.7) 3.6 x10^3uL (1.8-7.7) Lymphocytes # (Auto) 1.8 x10^3/uL (1.0-4.8) 2.6 x10^3/uL (1.0-4.8) Monocytes # (Auto) 1.0 x10^3/uL (0.0-1.1) 0.7 x10^3/uL (0.0-1.1) Eosinophils # (Auto) 0.1 x10^3/uL (0.0-0.7) 0.1 x10^3/uL (0.0-0.7) Basophils # (Auto) 0.1 x10^3/uL (0.0-0.2) 0.1 x10^3/uL (0.0-0.2) Erythrocyte Sedimentation Rate 34 (0-25) Lactic Acid Level 2.3 mmol/L (0.4-2.0) 1.1 mmol/L (0.4-2.0) C-Reactive Protein, Quantitative 91.3 mg/L (0-3.3) Procalcitonin < 0.10 ng/mL (0.00-0.10) Sodium Level 142 mmol/L (136-145) Potassium Level 3.5 mmol/L (3.5-5.1) Chloride Level 106 mmol/L (98-107) Carbon Dioxide Level 27 mmol/L (21-32) Anion Gap 9 (6-14) Blood Urea Nitrogen 7 mg/dL (7-20) Creatinine 0.7 mg/dL (0.6-1.0) Estimated GFR (Cockcroft-Gault) 92.7 Glucose Level 165 mg/dL (70-99) Calcium Level 7.8 mg/dL (8.5-10.1) Medications Current Medications Sodium Chloride 1,000 ml @ 2,520 mls/hr Q24M IV Last administered on 20:32; Start 12/01/16 at 20:15; Stop 12/01/16 at 21:15; Status DC Sodium Chloride 500 ml @ 1,000 mls/hr PRN Q30MIN PRN IV SEE COMMENTS Last administered on 12/01/16 22:37; Start 12/01/16 at 20:15 Fentanyl Citrate (Fentanyl 2ml Vial) 50 mcg 1X ONCE IV Last administered on 20:33; Start 12/01/16 at 20:15; Stop 12/01/16 at 20:16; Status DC Ondansetron HCl (Zofran) 4 mg PRN Q8HRS PRN IV NAUSEA/VOMITING Last administered on 12/01/16 22:40; Start 12/01/16 at 21:15; Stop 12/02/16 at 21:14 Fentanyl Citrate (Fentanyl 2ml Vial) 50 mcg PRN Q2HR PRN IV SEVERE PAIN Last administered on 12/02/16 04:18; Start 12/01/16 at 21:15; Stop 12/02/16 at 21:14 Clindamycin Phosphate 50 ml @ 100 mls/hr Q8HRS IV Last administered on 06:06; Start 12/01/16 at 22:00 Ceftriaxone Sodium 1 gm/ Sodium Chloride 50 ml @ 100 mls/hr Q24H IV ; Start 05/09 at 21:00 Sodium Chloride 1,000 ml @ 125 mls/hr 1X ONCE IV ; Start 12/01/16 at 21:15; Stop 12/02/16 at 05:14; Status DC Ceftriaxone Sodium 50 ml @ 100 mls/hr 1X ONCE IV Last administered on 00:20; Start 12/01/16 at 21:30; Stop 12/01/16 at 21:59; Status DC Oxycodone/ Acetaminophen (Percocet 7.5/ 325) 1 tab PRN Q4HRS PRN PO SEVERE PAIN Last administered on 12/01/16 22:41; Start 12/01/16 at 22:00 Nicotine (Nicoderm Cq 14mg) 1 patch PRN DAILY PRN TD SMOKING CESSATION; Start 12/01/16 at 22:30 Ketorolac Tromethamine (Toradol) 15 mg PRN Q6HRS PRN IV MODERATE PAIN Last administered on 12/02/16 06:05; Start 12/01/16 at 22:30; Stop 12/06/16 at 22:29 Ketorolac Tromethamine (Toradol) 30 mg 1X ONCE IV Last administered on 22:40; Start 12/01/16 at 23:00; Stop 12/01/16 at 23:01; Status DC Sodium Chloride 1,000 ml @ 150 mls/hr 1X ONCE IV Last administered on 22:41; Start 12/01/16 at 22:30; Stop 12/02/16 at 05:09; Status DC Albuterol/ Ipratropium (Duoneb) 3 ml 1X ONCE NEB Last administered on 04:50; Start 12/01/16 at 23:00; Stop 12/01/16 at 23:01; Status DC Albuterol Sulfate (Ventolin Neb Soln) 2.5 mg PRN QID PRN NEB DYSPNEA; Start 04/09 at 22:30 Vitamin B Complex (Folbic Tablet) 1 tab DAILY PO ; Start 12/02/16 at 09:00 Phenazopyridine HCl (Pyridium) 200 mg PRN TID PRN PO URINARY PAIN; Start at 09:30 Phenazopyridine HCl (Pyridium) 200 mg 1X ONCE PO ; Start 12/02/16 at 09:30; Stop 12/02/16 at 09:31; Status DC Active Scripts Active [place] 5-325 Tablet (Acetaminophen/Hydrocodone Bitart) 1 Each Tablet 1-2 Tab PO Q4-6HRS Bactrim Ds Tablet (Sulfamethoxazole/Trimethoprim) 1 Each Tablet 1 Tab PO BID [place] 5-325 Tablet (Acetaminophen/Hydrocodone Bitart) 1 Each Tablet 1 Tab PO PRN Q6HRS PRN Vitals/I & O Vital Sign - Last 24 Hours 12/01/16 12/01/16 12/01/16 12/01/16 20:03 20:31 20:33 21:01 Temp 98.6 98.6 Pulse 104 100 94 Resp 18 16 18 16 B/P (MAP) 138/71 (93) 116/60 (78) 123/73 (90) Pulse Ox 95 100 95 O2 Delivery Room Air Room Air Room Air Room Air 12/01/16 12/01/16 12/01/16 12/01/16 22:41 22:48 22:48 23:39 Temp 98.1 98.1 98.1 98.1 Pulse 97 97 Resp 20 20 B/P (MAP) 117/76 (90) 117/76 (90) Pulse Ox 97 97 O2 Delivery Room Air Room Air Room Air Room Air 12/01/16 12/02/16 12/02/16 12/02/16 23:41 03:00 04:18 04:48 Temp 97.9 97.9 Pulse 75 Resp 20 B/P (MAP) 105/57 (73) Pulse Ox 93 O2 Delivery Room Air Room Air Room Air Room Air 12/02/16 12/02/16 12/02/16 12/02/16 04:57 07:00 07:00 07:00 Temp 97.5 96.6 97.5 96.6 Pulse 76 Resp 18 B/P (MAP) 100/48 (65) 96/58 (71) 93/58 (70) Pulse Ox 97 96 O2 Delivery Room Air Room Air Intake and Output 12/01/16 12/01/16 12/02/16 15:00 23:00 07:00 Intake Total 0 ml Output Total 600 ml Balance -600 ml NOLAN GRIMALDO MD Dec 02, 2016 09:42
[2016-12-02] MEDS: IV NORMAL SALINE 1000ML BAG 1,000 ML IV SCH ×2 (10:43→21:07)
[2016-12-02] MEDS: POTASSIUM CHLORIDE 10MEQ 100 ML IV SCH ×2 (10:44→11:53)
[2016-12-02 10:59] LABS: BILIRUBIN,URINE NEGATIVE (NEG); GLUCOSE,URINE 100 mg/dL (NEG); NITRITE,URINE NEGATIVE (NEG); PROTEIN,URINE 30 mg/dL (NEG-TRACE); UROBILINOGEN,URINE 0.2 mg/dL (0.2 mg/dL)
[2016-12-02 11:06] VITALS: BP 113/71
[2016-12-02] MEDS: ONDANSETRON PF 4 MG/2 ML VIAL. IV PRN ×2 (11:09→21:06)
[2016-12-02 11:10] LABS: BACTERIA,URINE 0 /HPF (0-FEW); RBC,URINE 0 /HPF (0-2); SQUAMOUS EPITHELIAL CELL,UR MANY /LPF; WBC,URINE 0 /HPF (0-4)
--- NOTE | 2016-12-02 13:56 | PDOC2 ---
CONSULT Date of Consult Date of Consult DATE: 12/02/16 TIME: 13:52 Reason for Consult Reason for Consult: left groin abscess Referring Physician Referring Physician: Eric Identification/Chief Complaint Chief Complaint left groin pain Problems: Source Source: Patient History of Present Illness Reason for Visit: 41 yo F with multiple episodes of left groin abscess. Seen in ER on multiple occasions and drained. Presented with recurrence. Pt noted spontaneous drainage after admission. Feels better but still significant pain. Past Medical History Cardiovascular: No pertinent hx Pulmonary: No pertinent hx GI: No pertinent hx Heme/Onc: No pertinent hx Hepatobiliary: No pertinent hx Psych: No pertinent hx Rheumatologic: No pertinent hx Infectious disease: Other ENT: No pertinent hx Renal/: No pertinent hx Endocrine: No pertinent hx Family History Family History: Hypertension Social History <1 pack per day ALCOHOL: none Drugs: None Current Problem List Problem List Problems Medical Problems: (1) Abscess of left groin Status: Acute (2) Cellulitis of left groin Status: Acute Current Medications Current Medications Current Medications Sodium Chloride 1,000 ml @ 2,520 mls/hr Q24M IV Last administered on 20:32; Start 12/01/16 at 20:15; Stop 12/01/16 at 21:15; Status DC Sodium Chloride 500 ml @ 1,000 mls/hr PRN Q30MIN PRN IV SEE COMMENTS Last administered on 12/01/16 22:37; Start 12/01/16 at 20:15 Fentanyl Citrate (Fentanyl 2ml Vial) 50 mcg 1X ONCE IV Last administered on 20:33; Start 12/01/16 at 20:15; Stop 12/01/16 at 20:16; Status DC Ondansetron HCl (Zofran) 4 mg PRN Q8HRS PRN IV NAUSEA/VOMITING Last administered on 12/02/16 11:09; Start 12/01/16 at 21:15; Stop 12/02/16 at 21:14 Fentanyl Citrate (Fentanyl 2ml Vial) 50 mcg PRN Q2HR PRN IV SEVERE PAIN Last administered on 12/02/16 11:10; Start 12/01/16 at 21:15; Stop 12/02/16 at 21:14 Clindamycin Phosphate 50 ml @ 100 mls/hr Q8HRS IV Last administered on 06:06; Start 12/01/16 at 22:00 Ceftriaxone Sodium 1 gm/ Sodium Chloride 50 ml @ 100 mls/hr Q24H IV ; Start 05/09 at 21:00 Sodium Chloride 1,000 ml @ 125 mls/hr 1X ONCE IV ; Start 12/01/16 at 21:15; Stop 12/02/16 at 05:14; Status DC Ceftriaxone Sodium 50 ml @ 100 mls/hr 1X ONCE IV Last administered on 00:20; Start 12/01/16 at 21:30; Stop 12/01/16 at 21:59; Status DC Oxycodone/ Acetaminophen (Percocet 7.5/ 325) 1 tab PRN Q4HRS PRN PO SEVERE PAIN Last administered on 12/01/16 22:41; Start 12/01/16 at 22:00 Nicotine (Nicoderm Cq 14mg) 1 patch PRN DAILY PRN TD SMOKING CESSATION; Start 12/01/16 at 22:30 Ketorolac Tromethamine (Toradol) 15 mg PRN Q6HRS PRN IV MODERATE PAIN Last administered on 12/02/16 06:05; Start 12/01/16 at 22:30; Stop 12/06/16 at 22:29 Ketorolac Tromethamine (Toradol) 30 mg 1X ONCE IV Last administered on 22:40; Start 12/01/16 at 23:00; Stop 12/01/16 at 23:01; Status DC Sodium Chloride 1,000 ml @ 150 mls/hr 1X ONCE IV Last administered on 22:41; Start 12/01/16 at 22:30; Stop 12/02/16 at 05:09; Status DC Albuterol/ Ipratropium (Duoneb) 3 ml 1X ONCE NEB Last administered on 04:50; Start 12/01/16 at 23:00; Stop 12/01/16 at 23:01; Status DC Albuterol Sulfate (Ventolin Neb Soln) 2.5 mg PRN QID PRN NEB DYSPNEA; Start 04/09 at 22:30 Vitamin B Complex (Folbic Tablet) 1 tab DAILY PO ; Start 12/02/16 at 09:00 Phenazopyridine HCl (Pyridium) 200 mg PRN TID PRN PO URINARY PAIN; Start at 09:30 Phenazopyridine HCl (Pyridium) 200 mg 1X ONCE PO Last administered on 11:09; Start 12/02/16 at 09:30; Stop 12/02/16 at 09:31; Status DC Sodium Chloride 1,000 ml @ 125 mls/hr Q8H IV Last administered on 12/02/16 10 :43; Start 12/02/16 at 10:00 Potassium Chloride 100 ml @ 100 mls/hr Q1H IV Last administered on 12/02/16 11:53; Start 12/02/16 at 10:00; Stop 12/02/16 at 11:59; Status DC Active Scripts Active [place] 5-325 Tablet (Acetaminophen/Hydrocodone Bitart) 1 Each Tablet 1-2 Tab PO Q4-6HRS Bactrim Ds Tablet (Sulfamethoxazole/Trimethoprim) 1 Each Tablet 1 Tab PO BID [place] 5-325 Tablet (Acetaminophen/Hydrocodone Bitart) 1 Each Tablet 1 Tab PO PRN Q6HRS PRN Allergies Allergies: Coded Allergies: morphine (Verified Allergy, Intermediate, Itching, 10/27/13) ROS Skin: Yes Other (pain in left groin) Physical Exam General: Alert, Oriented X3, Cooperative, mild distress HEENT: Atraumatic, EOMI, Mucous membr. moist/pink Lungs: Normal air movement Abdomen: Soft, Other (TTP over draining indurated area left groin) Extremities: No clubbing, No cyanosis Skin: No rashes, No breakdown Neuro: Normal speech Psych/Mental Status: Mental status NL, Mood NL Vitals VITALS Vital Signs Date Time Temp Pulse Resp B/P (MAP) Pulse Ox O2 Delivery O2 Flow Rate FiO2 12/02/16 11:40 20 98 Room Air 12/02/16 11:06 97.7 76 113/71 (85) 97.7 Labs Labs Laboratory Tests Test 12/01/16 20:31 12/01/16 23:00 12/02/16 05:25 12/02/16 10:40 White Blood Count 15.3 x10^3/uL (4.0-11.0) 7.0 x10^3/uL (4.0-11.0) Red Blood Count 5.42 x10^6/uL (3.50-5.40) 4.90 x10^6/uL (3.50-5.40) Hemoglobin 13.1 g/dL (12.0-15.5) 12.1 g/dL (12.0-15.5) Hematocrit 39.8 % (36.0-47.0) 36.3 % (36.0-47.0) Mean Corpuscular Volume 74 fL (79-100) 74 fL (79-100) Mean Corpuscular Hemoglobin 24 pg (25-35) 25 pg (25-35) Mean Corpuscular Hemoglobin Concent 33 g/dL (31-37) 33 g/dL (31-37) Red Cell Distribution Width 18.7 % (11.5-14.5) 18.7 % (11.5-14.5) Platelet Count 288 x10^3/uL (140-400) 235 x10^3/uL (140-400) Neutrophils (%) (Auto) 81 % (31-73) 52 % (31-73) Lymphocytes (%) (Auto) 12 % (24-48) 37 % (24-48) Monocytes (%) (Auto) 6 % (0-9) 10 % (0-9) Eosinophils (%) (Auto) 1 % (0-3) 1 % (0-3) Basophils (%) (Auto) 1 % (0-3) 1 % (0-3) Neutrophils # (Auto) 12.4 x10^3uL (1.8-7.7) 3.6 x10^3uL (1.8-7.7) Lymphocytes # (Auto) 1.8 x10^3/uL (1.0-4.8) 2.6 x10^3/uL (1.0-4.8) Monocytes # (Auto) 1.0 x10^3/uL (0.0-1.1) 0.7 x10^3/uL (0.0-1.1) Eosinophils # (Auto) 0.1 x10^3/uL (0.0-0.7) 0.1 x10^3/uL (0.0-0.7) Basophils # (Auto) 0.1 x10^3/uL (0.0-0.2) 0.1 x10^3/uL (0.0-0.2) Erythrocyte Sedimentation Rate 34 (0-25) Lactic Acid Level 2.3 mmol/L (0.4-2.0) 1.1 mmol/L (0.4-2.0) C-Reactive Protein, Quantitative 91.3 mg/L (0-3.3) Procalcitonin < 0.10 ng/mL (0.00-0.10) Sodium Level 142 mmol/L (136-145) Potassium Level 3.5 mmol/L (3.5-5.1) Chloride Level 106 mmol/L (98-107) Carbon Dioxide Level 27 mmol/L (21-32) Anion Gap 9 (6-14) Blood Urea Nitrogen 7 mg/dL (7-20) Creatinine 0.7 mg/dL (0.6-1.0) Estimated GFR (Cockcroft-Gault) 92.7 Glucose Level 165 mg/dL (70-99) Calcium Level 7.8 mg/dL (8.5-10.1) Urine Color Stephanie Urine Clarity Turbid Urine pH 6.0 Urine Specific [place] >=1.030 Urine Protein 30 mg/dL (NEG-TRACE) Urine Glucose (UA) 100 mg/dL (NEG) Urine Ketones (Stick) Negative mg/dL (NEG) Urine Blood Negative (NEG) Urine Nitrite Negative (NEG) Urine Bilirubin Negative (NEG) Urine Urobilinogen Dipstick 0.2 mg/dL (0.2 mg/dL) Urine Leukocyte Esterase Negative (NEG) Urine RBC 0 /HPF (0-2) Urine WBC 0 /HPF (0-4) Urine Squamous Epithelial Cells Many /LPF Urine Bacteria 0 /HPF (0-FEW) Urine Mucus Marked /LPF Laboratory Tests Test 12/01/16 20:31 12/01/16 23:00 12/02/16 05:25 12/02/16 10:40 White Blood Count 15.3 x10^3/uL (4.0-11.0) 7.0 x10^3/uL (4.0-11.0) Red Blood Count 5.42 x10^6/uL (3.50-5.40) 4.90 x10^6/uL (3.50-5.40) Hemoglobin 13.1 g/dL (12.0-15.5) 12.1 g/dL (12.0-15.5) Hematocrit 39.8 % (36.0-47.0) 36.3 % (36.0-47.0) Mean Corpuscular Volume 74 fL (79-100) 74 fL (79-100) Mean Corpuscular Hemoglobin 24 pg (25-35) 25 pg (25-35) Mean Corpuscular Hemoglobin Concent 33 g/dL (31-37) 33 g/dL (31-37) Red Cell Distribution Width 18.7 % (11.5-14.5) 18.7 % (11.5-14.5) Platelet Count 288 x10^3/uL (140-400) 235 x10^3/uL (140-400) Neutrophils (%) (Auto) 81 % (31-73) 52 % (31-73) Lymphocytes (%) (Auto) 12 % (24-48) 37 % (24-48) Monocytes (%) (Auto) 6 % (0-9) 10 % (0-9) Eosinophils (%) (Auto) 1 % (0-3) 1 % (0-3) Basophils (%) (Auto) 1 % (0-3) 1 % (0-3) Neutrophils # (Auto) 12.4 x10^3uL (1.8-7.7) 3.6 x10^3uL (1.8-7.7) Lymphocytes # (Auto) 1.8 x10^3/uL (1.0-4.8) 2.6 x10^3/uL (1.0-4.8) Monocytes # (Auto) 1.0 x10^3/uL (0.0-1.1) 0.7 x10^3/uL (0.0-1.1) Eosinophils # (Auto) 0.1 x10^3/uL (0.0-0.7) 0.1 x10^3/uL (0.0-0.7) Basophils # (Auto) 0.1 x10^3/uL (0.0-0.2) 0.1 x10^3/uL (0.0-0.2) Erythrocyte Sedimentation Rate 34 (0-25) Lactic Acid Level 2.3 mmol/L (0.4-2.0) 1.1 mmol/L (0.4-2.0) C-Reactive Protein, Quantitative 91.3 mg/L (0-3.3) Procalcitonin < 0.10 ng/mL (0.00-0.10) Sodium Level 142 mmol/L (136-145) Potassium Level 3.5 mmol/L (3.5-5.1) Chloride Level 106 mmol/L (98-107) Carbon Dioxide Level 27 mmol/L (21-32) Anion Gap 9 (6-14) Blood Urea Nitrogen 7 mg/dL (7-20) Creatinine 0.7 mg/dL (0.6-1.0) Estimated GFR (Cockcroft-Gault) 92.7 Glucose Level 165 mg/dL (70-99) Calcium Level 7.8 mg/dL (8.5-10.1) Urine Color Stephanie Urine Clarity Turbid Urine pH 6.0 Urine Specific [place] >=1.030 Urine Protein 30 mg/dL (NEG-TRACE) Urine Glucose (UA) 100 mg/dL (NEG) Urine Ketones (Stick) Negative mg/dL (NEG) Urine Blood Negative (NEG) Urine Nitrite Negative (NEG) Urine Bilirubin Negative (NEG) Urine Urobilinogen Dipstick 0.2 mg/dL (0.2 mg/dL) Urine Leukocyte Esterase Negative (NEG) Urine RBC 0 /HPF (0-2) Urine WBC 0 /HPF (0-4) Urine Squamous Epithelial Cells Many /LPF Urine Bacteria 0 /HPF (0-FEW) Urine Mucus Marked /LPF Assessment/Plan Assessment/Plan left groin abscess agree with abx will plan i and D in OR in AM R/B/A d/w pt Thanks for consult! DAMEON SANTIAGO MD Dec 02, 2016 13:56
--- NOTE | 2016-12-02 14:32 | PDOC2 ---
CONSULT Date of Consult Date of Consult DATE: 12/02/16 TIME: 14:26 Reason for Consult Reason for Consult: Left groin abscess Referring Physician Referring Physician: Dr. Reyes Identification/Chief Complaint Chief Complaint Left labial and left groin mass Problems: Source Source: Chart review, Patient History of Present Illness Reason for Visit: 41 y/o presented for 3rd time to ED for labial and groin mass with moderate pain. The Labial abscess was drained in ED and has resolved. She now has Left groin abscess that has started to drain since admission and IV abx. Past Medical History Cardiovascular: No pertinent hx Pulmonary: No pertinent hx GI: No pertinent hx Heme/Onc: No pertinent hx Hepatobiliary: No pertinent hx Psych: No pertinent hx Rheumatologic: No pertinent hx Infectious disease: Other ENT: No pertinent hx Renal/: No pertinent hx Endocrine: No pertinent hx Family History Family History: Hypertension Social History <1 pack per day ALCOHOL: none Drugs: None Current Problem List Problem List Problems Medical Problems: (1) Abscess of left groin Status: Acute (2) Cellulitis of left groin Status: Acute Current Medications Current Medications Current Medications Sodium Chloride 1,000 ml @ 2,520 mls/hr Q24M IV Last administered on 20:32; Start 12/01/16 at 20:15; Stop 12/01/16 at 21:15; Status DC Sodium Chloride 500 ml @ 1,000 mls/hr PRN Q30MIN PRN IV SEE COMMENTS Last administered on 12/01/16 22:37; Start 12/01/16 at 20:15 Fentanyl Citrate (Fentanyl 2ml Vial) 50 mcg 1X ONCE IV Last administered on 20:33; Start 12/01/16 at 20:15; Stop 12/01/16 at 20:16; Status DC Ondansetron HCl (Zofran) 4 mg PRN Q8HRS PRN IV NAUSEA/VOMITING Last administered on 12/02/16 11:09; Start 12/01/16 at 21:15; Stop 12/02/16 at 21:14 Fentanyl Citrate (Fentanyl 2ml Vial) 50 mcg PRN Q2HR PRN IV SEVERE PAIN Last administered on 12/02/16 11:10; Start 12/01/16 at 21:15; Stop 12/02/16 at 21:14 Clindamycin Phosphate 50 ml @ 100 mls/hr Q8HRS IV Last administered on 06:06; Start 12/01/16 at 22:00 Ceftriaxone Sodium 1 gm/ Sodium Chloride 50 ml @ 100 mls/hr Q24H IV ; Start 05/09 at 21:00 Sodium Chloride 1,000 ml @ 125 mls/hr 1X ONCE IV ; Start 12/01/16 at 21:15; Stop 12/02/16 at 05:14; Status DC Ceftriaxone Sodium 50 ml @ 100 mls/hr 1X ONCE IV Last administered on 00:20; Start 12/01/16 at 21:30; Stop 12/01/16 at 21:59; Status DC Oxycodone/ Acetaminophen (Percocet 7.5/ 325) 1 tab PRN Q4HRS PRN PO SEVERE PAIN Last administered on 12/01/16 22:41; Start 12/01/16 at 22:00 Nicotine (Nicoderm Cq 14mg) 1 patch PRN DAILY PRN TD SMOKING CESSATION; Start 12/01/16 at 22:30 Ketorolac Tromethamine (Toradol) 15 mg PRN Q6HRS PRN IV MODERATE PAIN Last administered on 12/02/16 06:05; Start 12/01/16 at 22:30; Stop 12/06/16 at 22:29 Ketorolac Tromethamine (Toradol) 30 mg 1X ONCE IV Last administered on 22:40; Start 12/01/16 at 23:00; Stop 12/01/16 at 23:01; Status DC Sodium Chloride 1,000 ml @ 150 mls/hr 1X ONCE IV Last administered on 22:41; Start 12/01/16 at 22:30; Stop 12/02/16 at 05:09; Status DC Albuterol/ Ipratropium (Duoneb) 3 ml 1X ONCE NEB Last administered on 04:50; Start 12/01/16 at 23:00; Stop 12/01/16 at 23:01; Status DC Albuterol Sulfate (Ventolin Neb Soln) 2.5 mg PRN QID PRN NEB DYSPNEA; Start 04/09 at 22:30 Vitamin B Complex (Folbic Tablet) 1 tab DAILY PO ; Start 12/02/16 at 09:00 Phenazopyridine HCl (Pyridium) 200 mg PRN TID PRN PO URINARY PAIN; Start at 09:30 Phenazopyridine HCl (Pyridium) 200 mg 1X ONCE PO Last administered on 11:09; Start 12/02/16 at 09:30; Stop 12/02/16 at 09:31; Status DC Sodium Chloride 1,000 ml @ 125 mls/hr Q8H IV Last administered on 12/02/16 10 :43; Start 12/02/16 at 10:00 Potassium Chloride 100 ml @ 100 mls/hr Q1H IV Last administered on 12/02/16 11:53; Start 12/02/16 at 10:00; Stop 12/02/16 at 11:59; Status DC Active Scripts Active [place] 5-325 Tablet (Acetaminophen/Hydrocodone Bitart) 1 Each Tablet 1-2 Tab PO Q4-6HRS Bactrim Ds Tablet (Sulfamethoxazole/Trimethoprim) 1 Each Tablet 1 Tab PO BID [place] 5-325 Tablet (Acetaminophen/Hydrocodone Bitart) 1 Each Tablet 1 Tab PO PRN Q6HRS PRN Allergies Allergies: Coded Allergies: morphine (Verified Allergy, Intermediate, Itching, 10/27/13) ROS General: YES: Fatigue, No: Chills, Night Sweats, Malaise, Appetite, Other PSYCHOLOGICAL ROS: YES: Anxiety, No: Behavioral Disorder, Concentration difficultie, Decreased libido, Depression, Disorientation, Hallucinations, Hostility, Irritablity, Memory difficulties, Mood Swings, Obsessive thoughts, Physical abuse, Sexual abuse, Sleep disturbances, Suicidal ideation, Other Eyes: No Blurry vision, No Decreased vision, No Double vision, No Dry eyes, No Excessive tearing, No Eye Pain, No Itchy Eyes, No Loss of vision, No Photophobia , No Scotomata, No Uses contacts, No Uses glasses, No Other HEENT: No: Heacaches, Visual Changes, Hearing change, Nasal congestion, Nasal discharge, Oral lesions, Sinus pain, Sore Throat, Epistaxis, Sneezing, Snoring, Tinnitus, Vertigo, Vocal changes, Other ALLERGY AND IMMUNOLOGY: No: Hives, Insect Bite Sensitivity, Itchy/Watery Eyes, Nasal Congestion, Post Nasal Drip, Seasonal Allergies, Other Hematological and Lymphatic: No: Bleeding Problems, Blood Clots, Blood Transfusions, Brusing, Night Sweats, Pallor, Swollen Lymph Nodes, Other ENDOCRINE: No: Breast Changes, Galactorrhea, Hair Pattern Changes, Hot Flashes , Malaise/lethargy, Mood Swings, Palpitations, Polydipsia/polyuria, Skin Changes , Temperature Intolerance, Unexpected Weight Changes, Other Breast: No New/Changing Breast Lumps, No Nipple changes, No Nipple discharge, No Other Respiratory: No: Cough, Hemoptysis, Orthopnea, Pleuritic Pain, Shortness of breath, SOB with excertion, Sputum Changes, Stridor, Tachypnea, Wheezing, Other Cardiovascular: No Chest Pain, No Palpitations, No Orthopnea, No Paroxysmal Noc. Dyspnea, No Edema, No Lt Headedness, No Other Gastrointestinal: Yes Other (Pelvic: labia and vaginal vault normal. Left groin cellulitis with drainage of about 4 cm in diameter with moderate tenderness.) Vitals VITALS Vital Signs Date Time Temp Pulse Resp B/P (MAP) Pulse Ox O2 Delivery O2 Flow Rate FiO2 12/02/16 11:40 20 98 Room Air 12/02/16 11:06 97.7 76 113/71 (85) 97.7 Labs Labs Laboratory Tests Test 12/01/16 20:31 12/01/16 23:00 12/02/16 05:25 12/02/16 10:40 White Blood Count 15.3 x10^3/uL (4.0-11.0) 7.0 x10^3/uL (4.0-11.0) Red Blood Count 5.42 x10^6/uL (3.50-5.40) 4.90 x10^6/uL (3.50-5.40) Hemoglobin 13.1 g/dL (12.0-15.5) 12.1 g/dL (12.0-15.5) Hematocrit 39.8 % (36.0-47.0) 36.3 % (36.0-47.0) Mean Corpuscular Volume 74 fL (79-100) 74 fL (79-100) Mean Corpuscular Hemoglobin 24 pg (25-35) 25 pg (25-35) Mean Corpuscular Hemoglobin Concent 33 g/dL (31-37) 33 g/dL (31-37) Red Cell Distribution Width 18.7 % (11.5-14.5) 18.7 % (11.5-14.5) Platelet Count 288 x10^3/uL (140-400) 235 x10^3/uL (140-400) Neutrophils (%) (Auto) 81 % (31-73) 52 % (31-73) Lymphocytes (%) (Auto) 12 % (24-48) 37 % (24-48) Monocytes (%) (Auto) 6 % (0-9) 10 % (0-9) Eosinophils (%) (Auto) 1 % (0-3) 1 % (0-3) Basophils (%) (Auto) 1 % (0-3) 1 % (0-3) Neutrophils # (Auto) 12.4 x10^3uL (1.8-7.7) 3.6 x10^3uL (1.8-7.7) Lymphocytes # (Auto) 1.8 x10^3/uL (1.0-4.8) 2.6 x10^3/uL (1.0-4.8) Monocytes # (Auto) 1.0 x10^3/uL (0.0-1.1) 0.7 x10^3/uL (0.0-1.1) Eosinophils # (Auto) 0.1 x10^3/uL (0.0-0.7) 0.1 x10^3/uL (0.0-0.7) Basophils # (Auto) 0.1 x10^3/uL (0.0-0.2) 0.1 x10^3/uL (0.0-0.2) Erythrocyte Sedimentation Rate 34 (0-25) Lactic Acid Level 2.3 mmol/L (0.4-2.0) 1.1 mmol/L (0.4-2.0) C-Reactive Protein, Quantitative 91.3 mg/L (0-3.3) Procalcitonin < 0.10 ng/mL (0.00-0.10) Sodium Level 142 mmol/L (136-145) Potassium Level 3.5 mmol/L (3.5-5.1) Chloride Level 106 mmol/L (98-107) Carbon Dioxide Level 27 mmol/L (21-32) Anion Gap 9 (6-14) Blood Urea Nitrogen 7 mg/dL (7-20) Creatinine 0.7 mg/dL (0.6-1.0) Estimated GFR (Cockcroft-Gault) 92.7 Glucose Level 165 mg/dL (70-99) Calcium Level 7.8 mg/dL (8.5-10.1) Urine Color Stephanie Urine Clarity Turbid Urine pH 6.0 Urine Specific [place] >=1.030 Urine Protein 30 mg/dL (NEG-TRACE) Urine Glucose (UA) 100 mg/dL (NEG) Urine Ketones (Stick) Negative mg/dL (NEG) Urine Blood Negative (NEG) Urine Nitrite Negative (NEG) Urine Bilirubin Negative (NEG) Urine Urobilinogen Dipstick 0.2 mg/dL (0.2 mg/dL) Urine Leukocyte Esterase Negative (NEG) Urine RBC 0 /HPF (0-2) Urine WBC 0 /HPF (0-4) Urine Squamous Epithelial Cells Many /LPF Urine Bacteria 0 /HPF (0-FEW) Urine Mucus Marked /LPF Laboratory Tests Test 12/01/16 20:31 12/01/16 23:00 12/02/16 05:25 12/02/16 10:40 White Blood Count 15.3 x10^3/uL (4.0-11.0) 7.0 x10^3/uL (4.0-11.0) Red Blood Count 5.42 x10^6/uL (3.50-5.40) 4.90 x10^6/uL (3.50-5.40) Hemoglobin 13.1 g/dL (12.0-15.5) 12.1 g/dL (12.0-15.5) Hematocrit 39.8 % (36.0-47.0) 36.3 % (36.0-47.0) Mean Corpuscular Volume 74 fL (79-100) 74 fL (79-100) Mean Corpuscular Hemoglobin 24 pg (25-35) 25 pg (25-35) Mean Corpuscular Hemoglobin Concent 33 g/dL (31-37) 33 g/dL (31-37) Red Cell Distribution Width 18.7 % (11.5-14.5) 18.7 % (11.5-14.5) Platelet Count 288 x10^3/uL (140-400) 235 x10^3/uL (140-400) Neutrophils (%) (Auto) 81 % (31-73) 52 % (31-73) Lymphocytes (%) (Auto) 12 % (24-48) 37 % (24-48) Monocytes (%) (Auto) 6 % (0-9) 10 % (0-9) Eosinophils (%) (Auto) 1 % (0-3) 1 % (0-3) Basophils (%) (Auto) 1 % (0-3) 1 % (0-3) Neutrophils # (Auto) 12.4 x10^3uL (1.8-7.7) 3.6 x10^3uL (1.8-7.7) Lymphocytes # (Auto) 1.8 x10^3/uL (1.0-4.8) 2.6 x10^3/uL (1.0-4.8) Monocytes # (Auto) 1.0 x10^3/uL (0.0-1.1) 0.7 x10^3/uL (0.0-1.1) Eosinophils # (Auto) 0.1 x10^3/uL (0.0-0.7) 0.1 x10^3/uL (0.0-0.7) Basophils # (Auto) 0.1 x10^3/uL (0.0-0.2) 0.1 x10^3/uL (0.0-0.2) Erythrocyte Sedimentation Rate 34 (0-25) Lactic Acid Level 2.3 mmol/L (0.4-2.0) 1.1 mmol/L (0.4-2.0) C-Reactive Protein, Quantitative 91.3 mg/L (0-3.3) Procalcitonin < 0.10 ng/mL (0.00-0.10) Sodium Level 142 mmol/L (136-145) Potassium Level 3.5 mmol/L (3.5-5.1) Chloride Level 106 mmol/L (98-107) Carbon Dioxide Level 27 mmol/L (21-32) Anion Gap 9 (6-14) Blood Urea Nitrogen 7 mg/dL (7-20) Creatinine 0.7 mg/dL (0.6-1.0) Estimated GFR (Cockcroft-Gault) 92.7 Glucose Level 165 mg/dL (70-99) Calcium Level 7.8 mg/dL (8.5-10.1) Urine Color Stephanie Urine Clarity Turbid Urine pH 6.0 Urine Specific [place] >=1.030 Urine Protein 30 mg/dL (NEG-TRACE) Urine Glucose (UA) 100 mg/dL (NEG) Urine Ketones (Stick) Negative mg/dL (NEG) Urine Blood Negative (NEG) Urine Nitrite Negative (NEG) Urine Bilirubin Negative (NEG) Urine Urobilinogen Dipstick 0.2 mg/dL (0.2 mg/dL) Urine Leukocyte Esterase Negative (NEG) Urine RBC 0 /HPF (0-2) Urine WBC 0 /HPF (0-4) Urine Squamous Epithelial Cells Many /LPF Urine Bacteria 0 /HPF (0-FEW) Urine Mucus Marked /LPF Assessment/Plan Assessment/Plan A: Left groin cellulitis P: Continue IV abx. Appears she will have surgery for I&D tomorrow by General Surgery. Pt. with high anxiety about lesion and who will care for her once discharged. No further Teacher Private issues at this time. Thank you for consult. TOMASA LOREDO Jr, MD Dec 02, 2016 14:32
[2016-12-02 15:00] VITALS: BP 146/81
[2016-12-02 19:00] VITALS: BP 129/69
[2016-12-02] MEDS: PHENAZOPYRIDINE 200 MG TABLET. PO PRN (22:41)
[2016-12-02 23:00] VITALS: BP 115/79
[2016-12-02] MEDS: oxyCODONE/APAP 7.5/325 1 TAB TABLET PO PRN (23:54)
[2016-12-03] VITALS (12 sets, daily range): BP systolic 111–137; BP diastolic 60–84
[2016-12-03] MEDS: IV NORMAL SALINE 1000ML BAG 1,000 ML IV SCH ×2 (05:58→16:25)
[2016-12-03] MEDS: KETOROLAC 15 MG/ML VIAL. IV PRN (05:58)
[2016-12-03] MEDS: CLINDAMYCIN 900MG PREMIX 50 ML IV SCH ×3 (05:59→22:05)
[2016-12-03 06:14] LABS: BASO # 0.1 x10^3/uL (0.0-0.2); BASO % 1 % (0-3); EOS % 2 % (0-3); HEMATOCRIT 33.6 % (36.0-47.0); HEMOGLOBIN 10.6 g/dL (12.0-15.5); LYMPH # 2.7 x10^3/uL (1.0-4.8); LYMPH % 28 % (24-48); MEAN CORPUSCULAR HEMOGLOBIN 24 pg (25-35); MEAN CORPUSCULAR HGB CONC 31 g/dL (31-37); MEAN CORPUSCULAR VOLUME 76 fL (79-100); MONO % 6 % (0-9); NEUT % 64 % (31-73); PLATELET COUNT 224 x10^3/uL (140-400); RED BLOOD COUNT 4.41 x10^6/uL (3.50-5.40); RED CELL DISTRIBUTION WIDTH 18.6 % (11.5-14.5); WHITE BLOOD COUNT 9.5 x10^3/uL (4.0-11.0)
[2016-12-03 06:34] LABS: % SAT IRON 5 % (15-34); IRON,SERUM 17 ug/dL (50-170)
[2016-12-03 06:35] LABS: ALBUMIN 2.8 g/dL (3.4-5.0); ALBUMIN/GLOBULIN RATIO 0.8 (1.0-1.7); CALCIUM 7.9 mg/dL (8.5-10.1); CREATININE 0.7 mg/dL (0.6-1.0); GFR 92.7; POTASSIUM 4.1 mmol/L (3.5-5.1); TOTAL BILIRUBIN 0.1 mg/dL (0.2-1.0); TOTAL PROTEIN 6.3 g/dL (6.4-8.2)
[2016-12-03] MEDS ORDERED: ONDANSETRON PF 4 MG/2 ML VIAL. IV PRN ×2 (07:00→12:00)
[2016-12-03] MEDS ORDERED: PROCHLORPERAZINE 10 MG/2 ML VIAL. IV PRN (07:00)
[2016-12-03] MEDS ORDERED: fentaNYL PF VIAL 100 MCG/2 ML VIAL IV PRN (07:00)
[2016-12-03] MEDS ORDERED: IV RINGERS,LACTATED 1000ML 1,000 ML IV SCH (07:00)
[2016-12-03] MEDS ORDERED: LIDOCAINE 1% 1 ML SYRINGE. ID PRN (07:00)
--- NOTE | 2016-12-03 08:07 | PDOC ---
PROGRESS NOTES Chief Complaint Chief Complaint cellulitis w/ abcess, groin recent miscarriage, tobaccoism, overweight BMI 40 NON diabetic MAGY History of Present Illness History of Present Illness PAin and induration and swelling better per pt NO fevers oN iV clinda and rocephin UTI is neg - had dysuria yesterday NOrmal WBC ct IRon panel reviewed - supports MAGY Gyne note reviewed- no further recs PE: Genital area inspected: induration and redness around appreciable but not flaming red, no open lesions, tender to moderate palpation, manipulation PLAN: [facility] Send I and D specimen to lab later I and D later 11:30 AM STart ferrous sulfate PO Vitals Vitals Vital Signs Date Time Temp Pulse Resp B/P (MAP) Pulse Ox O2 Delivery O2 Flow Rate FiO2 12/03/16 07:00 97.9 76 19 111/61 (78) 98 Room Air 97.9 Physical Exam General: Alert, Oriented X3, Cooperative, mild distress Heart: Regular rate Lungs: Clear Abdomen: Soft, Other (TTP over draining indurated area left groin) Extremities: No clubbing, No cyanosis Skin: No rashes, No breakdown Labs LABS Laboratory Tests Test 12/02/16 10:40 12/03/16 05:55 Urine Color Stephanie Urine Clarity Turbid Urine pH 6.0 Urine Specific Watson >=1.030 Urine Protein 30 mg/dL (NEG-TRACE) Urine Glucose (UA) 100 mg/dL (NEG) Urine Ketones (Stick) Negative mg/dL (NEG) Urine Blood Negative (NEG) Urine Nitrite Negative (NEG) Urine Bilirubin Negative (NEG) Urine Urobilinogen Dipstick 0.2 mg/dL (0.2 mg/dL) Urine Leukocyte Esterase Negative (NEG) Urine RBC 0 /HPF (0-2) Urine WBC 0 /HPF (0-4) Urine Squamous Epithelial Cells Many /LPF Urine Bacteria 0 /HPF (0-FEW) Urine Mucus Marked /LPF White Blood Count 9.5 x10^3/uL (4.0-11.0) Red Blood Count 4.41 x10^6/uL (3.50-5.40) Hemoglobin 10.6 g/dL (12.0-15.5) Hematocrit 33.6 % (36.0-47.0) Mean Corpuscular Volume 76 fL (79-100) Mean Corpuscular Hemoglobin 24 pg (25-35) Mean Corpuscular Hemoglobin Concent 31 g/dL (31-37) Red Cell Distribution Width 18.6 % (11.5-14.5) Platelet Count 224 x10^3/uL (140-400) Neutrophils (%) (Auto) 64 % (31-73) Lymphocytes (%) (Auto) 28 % (24-48) Monocytes (%) (Auto) 6 % (0-9) Eosinophils (%) (Auto) 2 % (0-3) Basophils (%) (Auto) 1 % (0-3) Neutrophils # (Auto) 6.0 x10^3uL (1.8-7.7) Lymphocytes # (Auto) 2.7 x10^3/uL (1.0-4.8) Monocytes # (Auto) 0.6 x10^3/uL (0.0-1.1) Eosinophils # (Auto) 0.2 x10^3/uL (0.0-0.7) Basophils # (Auto) 0.1 x10^3/uL (0.0-0.2) Sodium Level 142 mmol/L (136-145) Potassium Level 4.1 mmol/L (3.5-5.1) Chloride Level 107 mmol/L (98-107) Carbon Dioxide Level 27 mmol/L (21-32) Anion Gap 8 (6-14) Blood Urea Nitrogen 5 mg/dL (7-20) Creatinine 0.7 mg/dL (0.6-1.0) Estimated GFR (Cockcroft-Gault) 92.7 BUN/Creatinine Ratio 7 (6-20) Glucose Level 148 mg/dL (70-99) Calcium Level 7.9 mg/dL (8.5-10.1) Iron Level 17 ug/dL (50-170) Total Iron Binding Capacity 312 ug/dL (250-450) Iron Saturation 5 % (15-34) Total Bilirubin 0.1 mg/dL (0.2-1.0) Aspartate Amino Transf (AST/SGOT) 47 U/L (15-37) Alanine Aminotransferase (ALT/SGPT) 107 U/L (14-59) Alkaline Phosphatase 117 U/L (46-116) Total Protein 6.3 g/dL (6.4-8.2) Albumin 2.8 g/dL (3.4-5.0) Albumin/Globulin Ratio 0.8 (1.0-1.7) Review of Systems Review of Systems pain genial area, all else is neg Assessment and Plan Assessmemt and Plan Problems Medical Problems: (1) Abscess of left groin Status: Acute (2) Cellulitis of left groin Status: Acute Problems: Comment Review of Relevant I have reviewed the following items nakul (where applicable) has been applied. Labs Laboratory Tests Test 12/01/16 20:31 12/01/16 23:00 12/02/16 05:25 12/02/16 10:40 White Blood Count 15.3 x10^3/uL (4.0-11.0) 7.0 x10^3/uL (4.0-11.0) Red Blood Count 5.42 x10^6/uL (3.50-5.40) 4.90 x10^6/uL (3.50-5.40) Hemoglobin 13.1 g/dL (12.0-15.5) 12.1 g/dL (12.0-15.5) Hematocrit 39.8 % (36.0-47.0) 36.3 % (36.0-47.0) Mean Corpuscular Volume 74 fL (79-100) 74 fL (79-100) Mean Corpuscular Hemoglobin 24 pg (25-35) 25 pg (25-35) Mean Corpuscular Hemoglobin Concent 33 g/dL (31-37) 33 g/dL (31-37) Red Cell Distribution Width 18.7 % (11.5-14.5) 18.7 % (11.5-14.5) Platelet Count 288 x10^3/uL (140-400) 235 x10^3/uL (140-400) Neutrophils (%) (Auto) 81 % (31-73) 52 % (31-73) Lymphocytes (%) (Auto) 12 % (24-48) 37 % (24-48) Monocytes (%) (Auto) 6 % (0-9) 10 % (0-9) Eosinophils (%) (Auto) 1 % (0-3) 1 % (0-3) Basophils (%) (Auto) 1 % (0-3) 1 % (0-3) Neutrophils # (Auto) 12.4 x10^3uL (1.8-7.7) 3.6 x10^3uL (1.8-7.7) Lymphocytes # (Auto) 1.8 x10^3/uL (1.0-4.8) 2.6 x10^3/uL (1.0-4.8) Monocytes # (Auto) 1.0 x10^3/uL (0.0-1.1) 0.7 x10^3/uL (0.0-1.1) Eosinophils # (Auto) 0.1 x10^3/uL (0.0-0.7) 0.1 x10^3/uL (0.0-0.7) Basophils # (Auto) 0.1 x10^3/uL (0.0-0.2) 0.1 x10^3/uL (0.0-0.2) Erythrocyte Sedimentation Rate 34 (0-25) Lactic Acid Level 2.3 mmol/L (0.4-2.0) 1.1 mmol/L (0.4-2.0) C-Reactive Protein, Quantitative 91.3 mg/L (0-3.3) Procalcitonin < 0.10 ng/mL (0.00-0.10) Sodium Level 142 mmol/L (136-145) Potassium Level 3.5 mmol/L (3.5-5.1) Chloride Level 106 mmol/L (98-107) Carbon Dioxide Level 27 mmol/L (21-32) Anion Gap 9 (6-14) Blood Urea Nitrogen 7 mg/dL (7-20) Creatinine 0.7 mg/dL (0.6-1.0) Estimated GFR (Cockcroft-Gault) 92.7 Glucose Level 165 mg/dL (70-99) Calcium Level 7.8 mg/dL (8.5-10.1) Urine Color Stephanie Urine Clarity Turbid Urine pH 6.0 Urine Specific Watson >=1.030 Urine Protein 30 mg/dL (NEG-TRACE) Urine Glucose (UA) 100 mg/dL (NEG) Urine Ketones (Stick) Negative mg/dL (NEG) Urine Blood Negative (NEG) Urine Nitrite Negative (NEG) Urine Bilirubin Negative (NEG) Urine Urobilinogen Dipstick 0.2 mg/dL (0.2 mg/dL) Urine Leukocyte Esterase Negative (NEG) Urine RBC 0 /HPF (0-2) Urine WBC 0 /HPF (0-4) Urine Squamous Epithelial Cells Many /LPF Urine Bacteria 0 /HPF (0-FEW) Urine Mucus Marked /LPF Test 12/03/16 05:55 White Blood Count 9.5 x10^3/uL (4.0-11.0) Red Blood Count 4.41 x10^6/uL (3.50-5.40) Hemoglobin 10.6 g/dL (12.0-15.5) Hematocrit 33.6 % (36.0-47.0) Mean Corpuscular Volume 76 fL (79-100) Mean Corpuscular Hemoglobin 24 pg (25-35) Mean Corpuscular Hemoglobin Concent 31 g/dL (31-37) Red Cell Distribution Width 18.6 % (11.5-14.5) Platelet Count 224 x10^3/uL (140-400) Neutrophils (%) (Auto) 64 % (31-73) Lymphocytes (%) (Auto) 28 % (24-48) Monocytes (%) (Auto) 6 % (0-9) Eosinophils (%) (Auto) 2 % (0-3) Basophils (%) (Auto) 1 % (0-3) Neutrophils # (Auto) 6.0 x10^3uL (1.8-7.7) Lymphocytes # (Auto) 2.7 x10^3/uL (1.0-4.8) Monocytes # (Auto) 0.6 x10^3/uL (0.0-1.1) Eosinophils # (Auto) 0.2 x10^3/uL (0.0-0.7) Basophils # (Auto) 0.1 x10^3/uL (0.0-0.2) Sodium Level 142 mmol/L (136-145) Potassium Level 4.1 mmol/L (3.5-5.1) Chloride Level 107 mmol/L (98-107) Carbon Dioxide Level 27 mmol/L (21-32) Anion Gap 8 (6-14) Blood Urea Nitrogen 5 mg/dL (7-20) Creatinine 0.7 mg/dL (0.6-1.0) Estimated GFR (Cockcroft-Gault) 92.7 BUN/Creatinine Ratio 7 (6-20) Glucose Level 148 mg/dL (70-99) Calcium Level 7.9 mg/dL (8.5-10.1) Iron Level 17 ug/dL (50-170) Total Iron Binding Capacity 312 ug/dL (250-450) Iron Saturation 5 % (15-34) Total Bilirubin 0.1 mg/dL (0.2-1.0) Aspartate Amino Transf (AST/SGOT) 47 U/L (15-37) Alanine Aminotransferase (ALT/SGPT) 107 U/L (14-59) Alkaline Phosphatase 117 U/L (46-116) Total Protein 6.3 g/dL (6.4-8.2) Albumin 2.8 g/dL (3.4-5.0) Albumin/Globulin Ratio 0.8 (1.0-1.7) Laboratory Tests Test 12/02/16 10:40 12/03/16 05:55 Urine Color Stephanie Urine Clarity Turbid Urine pH 6.0 Urine Specific Watson >=1.030 Urine Protein 30 mg/dL (NEG-TRACE) Urine Glucose (UA) 100 mg/dL (NEG) Urine Ketones (Stick) Negative mg/dL (NEG) Urine Blood Negative (NEG) Urine Nitrite Negative (NEG) Urine Bilirubin Negative (NEG) Urine Urobilinogen Dipstick 0.2 mg/dL (0.2 mg/dL) Urine Leukocyte Esterase Negative (NEG) Urine RBC 0 /HPF (0-2) Urine WBC 0 /HPF (0-4) Urine Squamous Epithelial Cells Many /LPF Urine Bacteria 0 /HPF (0-FEW) Urine Mucus Marked /LPF White Blood Count 9.5 x10^3/uL (4.0-11.0) Red Blood Count 4.41 x10^6/uL (3.50-5.40) Hemoglobin 10.6 g/dL (12.0-15.5) Hematocrit 33.6 % (36.0-47.0) Mean Corpuscular Volume 76 fL (79-100) Mean Corpuscular Hemoglobin 24 pg (25-35) Mean Corpuscular Hemoglobin Concent 31 g/dL (31-37) Red Cell Distribution Width 18.6 % (11.5-14.5) Platelet Count 224 x10^3/uL (140-400) Neutrophils (%) (Auto) 64 % (31-73) Lymphocytes (%) (Auto) 28 % (24-48) Monocytes (%) (Auto) 6 % (0-9) Eosinophils (%) (Auto) 2 % (0-3) Basophils (%) (Auto) 1 % (0-3) Neutrophils # (Auto) 6.0 x10^3uL (1.8-7.7) Lymphocytes # (Auto) 2.7 x10^3/uL (1.0-4.8) Monocytes # (Auto) 0.6 x10^3/uL (0.0-1.1) Eosinophils # (Auto) 0.2 x10^3/uL (0.0-0.7) Basophils # (Auto) 0.1 x10^3/uL (0.0-0.2) Sodium Level 142 mmol/L (136-145) Potassium Level 4.1 mmol/L (3.5-5.1) Chloride Level 107 mmol/L (98-107) Carbon Dioxide Level 27 mmol/L (21-32) Anion Gap 8 (6-14) Blood Urea Nitrogen 5 mg/dL (7-20) Creatinine 0.7 mg/dL (0.6-1.0) Estimated GFR (Cockcroft-Gault) 92.7 BUN/Creatinine Ratio 7 (6-20) Glucose Level 148 mg/dL (70-99) Calcium Level 7.9 mg/dL (8.5-10.1) Iron Level 17 ug/dL (50-170) Total Iron Binding Capacity 312 ug/dL (250-450) Iron Saturation 5 % (15-34) Total Bilirubin 0.1 mg/dL (0.2-1.0) Aspartate Amino Transf (AST/SGOT) 47 U/L (15-37) Alanine Aminotransferase (ALT/SGPT) 107 U/L (14-59) Alkaline Phosphatase 117 U/L (46-116) Total Protein 6.3 g/dL (6.4-8.2) Albumin 2.8 g/dL (3.4-5.0) Albumin/Globulin Ratio 0.8 (1.0-1.7) Microbiology 12/01/16 Blood Culture - Preliminary, Resulted NO GROWTH AFTER 1 DAY 12/01/16 Gram Stain - Final, Complete Medications Current Medications Sodium Chloride 1,000 ml @ 2,520 mls/hr Q24M IV Last administered on 20:32; Start 12/01/16 at 20:15; Stop 12/01/16 at 21:15; Status DC Sodium Chloride 500 ml @ 1,000 mls/hr PRN Q30MIN PRN IV SEE COMMENTS Last administered on 12/01/16 22:37; Start 12/01/16 at 20:15 Fentanyl Citrate (Fentanyl 2ml Vial) 50 mcg 1X ONCE IV Last administered on 20:33; Start 12/01/16 at 20:15; Stop 12/01/16 at 20:16; Status DC Ondansetron HCl (Zofran) 4 mg PRN Q8HRS PRN IV NAUSEA/VOMITING Last administered on 12/02/16 21:06; Start 12/01/16 at 21:15; Stop 12/02/16 at 21:14 ; Status DC Fentanyl Citrate (Fentanyl 2ml Vial) 50 mcg PRN Q2HR PRN IV SEVERE PAIN Last administered on 12/02/16 21:07; Start 12/01/16 at 21:15; Stop 12/02/16 at 21:14 ; Status DC Clindamycin Phosphate 50 ml @ 100 mls/hr Q8HRS IV Last administered on 05:59; Start 12/01/16 at 22:00 Ceftriaxone Sodium 1 gm/ Sodium Chloride 50 ml @ 100 mls/hr Q24H IV Last administered on 12/02/16 21:06; Start 12/02/16 at 21:00 Sodium Chloride 1,000 ml @ 125 mls/hr 1X ONCE IV ; Start 12/01/16 at 21:15; Stop 12/02/16 at 05:14; Status DC Ceftriaxone Sodium 50 ml @ 100 mls/hr 1X ONCE IV Last administered on 00:20; Start 12/01/16 at 21:30; Stop 12/01/16 at 21:59; Status DC Oxycodone/ Acetaminophen (Percocet 7.5/ 325) 1 tab PRN Q4HRS PRN PO SEVERE PAIN Last administered on 12/02/16 23:54; Start 12/01/16 at 22:00 Nicotine (Nicoderm Cq 14mg) 1 patch PRN DAILY PRN TD SMOKING CESSATION; Start 12/01/16 at 22:30 Ketorolac Tromethamine (Toradol) 15 mg PRN Q6HRS PRN IV MODERATE PAIN Last administered on 12/03/16 05:58; Start 12/01/16 at 22:30; Stop 12/06/16 at 22:29 Ketorolac Tromethamine (Toradol) 30 mg 1X ONCE IV Last administered on 22:40; Start 12/01/16 at 23:00; Stop 12/01/16 at 23:01; Status DC Sodium Chloride 1,000 ml @ 150 mls/hr 1X ONCE IV Last administered on 22:41; Start 12/01/16 at 22:30; Stop 12/02/16 at 05:09; Status DC Albuterol/ Ipratropium (Duoneb) 3 ml 1X ONCE NEB Last administered on 04:50; Start 12/01/16 at 23:00; Stop 12/01/16 at 23:01; Status DC Albuterol Sulfate (Ventolin Neb Soln) 2.5 mg PRN QID PRN NEB DYSPNEA Last administered on 12/02/16 22:55; Start 12/01/16 at 22:30 Vitamin B Complex (Folbic Tablet) 1 tab DAILY PO ; Start 12/02/16 at 09:00 Phenazopyridine HCl (Pyridium) 200 mg PRN TID PRN PO URINARY PAIN Last administered on 12/02/16 22:41; Start 12/02/16 at 09:30 Phenazopyridine HCl (Pyridium) 200 mg 1X ONCE PO Last administered on 11:09; Start 12/02/16 at 09:30; Stop 12/02/16 at 09:31; Status DC Sodium Chloride 1,000 ml @ 125 mls/hr Q8H IV Last administered on 12/03/16 05 :58; Start 12/02/16 at 10:00 Potassium Chloride 100 ml @ 100 mls/hr Q1H IV Last administered on 12/02/16 11:53; Start 12/02/16 at 10:00; Stop 12/02/16 at 11:59; Status DC Ondansetron HCl (Zofran) 4 mg PRN Q6HRS PRN IV NAUSEA/VOMITING; Start 12/03/16 at 07:00; Stop 12/04/16 at 06:59 Fentanyl Citrate (Fentanyl 2ml Vial) 25 mcg PRN Q5MIN PRN IV MILD PAIN; Start 12/03/16 at 07:00; Stop 12/04/16 at 06:59 Fentanyl Citrate (Fentanyl 2ml Vial) 50 mcg PRN Q5MIN PRN IV MODERATE PAIN; Start 12/03/16 at 07:00; Stop 12/04/16 at 06:59 Ringer's Solution 1,000 ml @ 30 mls/hr Q24H IV ; Start 12/03/16 at 07:00; Stop 12/03/16 at 18:59 Lidocaine HCl 2 ml PRN 1X PRN ID PRIOR TO IV START; Start 12/03/16 at 07:00; Stop 12/04/16 at 06:59 Prochlorperazine Edisylate (Compazine) 5 mg PACU PRN PRN IV NAUSEA, MRX1; Start 12/03/16 at 07:00; Stop 12/04/16 at 06:59 Ferrous Sulfate (Feosol) 325 mg DAILYWBKFT PO ; Start 12/03/16 at 08:00 Active Scripts Active [place] 5-325 Tablet (Acetaminophen/Hydrocodone Bitart) 1 Each Tablet 1-2 Tab PO Q4-6HRS Bactrim Ds Tablet (Sulfamethoxazole/Trimethoprim) 1 Each Tablet 1 Tab PO BID [place] 5-325 Tablet (Acetaminophen/Hydrocodone Bitart) 1 Each Tablet 1 Tab PO PRN Q6HRS PRN Vitals/I & O Vital Sign - Last 24 Hours 12/02/16 12/02/16 12/02/16 12/02/16 11:06 11:10 11:40 15:00 Temp 97.7 97.7 97.7 97.7 Pulse 76 78 Resp 16 20 20 16 B/P (MAP) 113/71 (85) 146/81 (102) Pulse Ox 98 98 98 97 O2 Delivery Room Air Room Air Room Air Room Air 12/02/16 12/02/16 12/02/16 12/02/16 19:00 20:00 21:07 22:57 Temp 98.9 98.9 Pulse 76 Resp 20 17 B/P (MAP) 129/69 (89) Pulse Ox 97 97 98 O2 Delivery Room Air Room Air Room Air Room Air 12/02/16 12/02/16 12/03/16 12/03/16 23:00 23:54 00:54 03:00 Temp 97.4 97.4 97.4 97.4 Pulse 69 69 Resp 20 16 17 20 B/P (MAP) 115/79 (91) 115/79 (91) Pulse Ox 96 96 96 96 O2 Delivery Room Air Room Air Room Air Room Air 12/03/16 12/03/16 04:04 07:00 Temp 97.5 97.9 97.5 97.9 Pulse 79 76 Resp 20 19 B/P (MAP) 130/70 (90) 111/61 (78) Pulse Ox 98 98 O2 Delivery Room Air Room Air Intake and Output 12/02/16 12/02/16 12/03/16 15:00 23:00 07:00 Intake Total 675 ml 1010 ml Balance 675 ml 1010 ml JANAE YEAGER MD Dec 03, 2016 08:07
[2016-12-03] MEDS ORDERED: PROPOFOL 20 ML IV ONE (10:43)
[2016-12-03] MEDS ORDERED: DEXAMETHASONE SOD PHOS 20 MG/5 ML VIAL. ONE ×2 (10:43→11:35)
[2016-12-03] MEDS ORDERED: ONDANSETRON PF 4 MG/2 ML VIAL. ONE (10:43)
[2016-12-03] MEDS ORDERED: LIDOCAINE 2% PF Vial for OR 5 ML VIAL. ONE (10:43)
[2016-12-03] MEDS ORDERED: DESFLURANE 31 TO 60 MINUTES IH ONE (10:44)
[2016-12-03] MEDS ORDERED: fentaNYL PF VIAL 100 MCG/2 ML VIAL ONE (10:44)
--- NOTE | 2016-12-03 11:06 | PDOC ---
SURGICAL PROGRESS NOTE Subjective 41 yo F with left groin abscess, feels better today, increased drainage TO OR for i and d R/B/A d/w pt Vital Signs Vital Signs Date Time Temp Pulse Resp B/P (MAP) Pulse Ox O2 Delivery O2 Flow Rate FiO2 12/03/16 07:00 97.9 76 19 111/61 (78) 98 Room Air 97.9 I&O Intake and Output 12/03/16 07:00 Intake Total 1685 ml Balance 1685 ml Intake Oral 1685 ml # Voids 7 Labs Laboratory Tests Test 12/01/16 20:31 12/01/16 23:00 12/02/16 05:25 12/02/16 10:40 White Blood Count 15.3 x10^3/uL (4.0-11.0) 7.0 x10^3/uL (4.0-11.0) Red Blood Count 5.42 x10^6/uL (3.50-5.40) 4.90 x10^6/uL (3.50-5.40) Hemoglobin 13.1 g/dL (12.0-15.5) 12.1 g/dL (12.0-15.5) Hematocrit 39.8 % (36.0-47.0) 36.3 % (36.0-47.0) Mean Corpuscular Volume 74 fL (79-100) 74 fL (79-100) Mean Corpuscular Hemoglobin 24 pg (25-35) 25 pg (25-35) Mean Corpuscular Hemoglobin Concent 33 g/dL (31-37) 33 g/dL (31-37) Red Cell Distribution Width 18.7 % (11.5-14.5) 18.7 % (11.5-14.5) Platelet Count 288 x10^3/uL (140-400) 235 x10^3/uL (140-400) Neutrophils (%) (Auto) 81 % (31-73) 52 % (31-73) Lymphocytes (%) (Auto) 12 % (24-48) 37 % (24-48) Monocytes (%) (Auto) 6 % (0-9) 10 % (0-9) Eosinophils (%) (Auto) 1 % (0-3) 1 % (0-3) Basophils (%) (Auto) 1 % (0-3) 1 % (0-3) Neutrophils # (Auto) 12.4 x10^3uL (1.8-7.7) 3.6 x10^3uL (1.8-7.7) Lymphocytes # (Auto) 1.8 x10^3/uL (1.0-4.8) 2.6 x10^3/uL (1.0-4.8) Monocytes # (Auto) 1.0 x10^3/uL (0.0-1.1) 0.7 x10^3/uL (0.0-1.1) Eosinophils # (Auto) 0.1 x10^3/uL (0.0-0.7) 0.1 x10^3/uL (0.0-0.7) Basophils # (Auto) 0.1 x10^3/uL (0.0-0.2) 0.1 x10^3/uL (0.0-0.2) Erythrocyte Sedimentation Rate 34 (0-25) Lactic Acid Level 2.3 mmol/L (0.4-2.0) 1.1 mmol/L (0.4-2.0) C-Reactive Protein, Quantitative 91.3 mg/L (0-3.3) Procalcitonin < 0.10 ng/mL (0.00-0.10) Sodium Level 142 mmol/L (136-145) Potassium Level 3.5 mmol/L (3.5-5.1) Chloride Level 106 mmol/L (98-107) Carbon Dioxide Level 27 mmol/L (21-32) Anion Gap 9 (6-14) Blood Urea Nitrogen 7 mg/dL (7-20) Creatinine 0.7 mg/dL (0.6-1.0) Estimated GFR (Cockcroft-Gault) 92.7 Glucose Level 165 mg/dL (70-99) Calcium Level 7.8 mg/dL (8.5-10.1) Urine Color Stephanie Urine Clarity Turbid Urine pH 6.0 Urine Specific Story >=1.030 Urine Protein 30 mg/dL (NEG-TRACE) Urine Glucose (UA) 100 mg/dL (NEG) Urine Ketones (Stick) Negative mg/dL (NEG) Urine Blood Negative (NEG) Urine Nitrite Negative (NEG) Urine Bilirubin Negative (NEG) Urine Urobilinogen Dipstick 0.2 mg/dL (0.2 mg/dL) Urine Leukocyte Esterase Negative (NEG) Urine RBC 0 /HPF (0-2) Urine WBC 0 /HPF (0-4) Urine Squamous Epithelial Cells Many /LPF Urine Bacteria 0 /HPF (0-FEW) Urine Mucus Marked /LPF Test 12/03/16 05:55 White Blood Count 9.5 x10^3/uL (4.0-11.0) Red Blood Count 4.41 x10^6/uL (3.50-5.40) Hemoglobin 10.6 g/dL (12.0-15.5) Hematocrit 33.6 % (36.0-47.0) Mean Corpuscular Volume 76 fL (79-100) Mean Corpuscular Hemoglobin 24 pg (25-35) Mean Corpuscular Hemoglobin Concent 31 g/dL (31-37) Red Cell Distribution Width 18.6 % (11.5-14.5) Platelet Count 224 x10^3/uL (140-400) Neutrophils (%) (Auto) 64 % (31-73) Lymphocytes (%) (Auto) 28 % (24-48) Monocytes (%) (Auto) 6 % (0-9) Eosinophils (%) (Auto) 2 % (0-3) Basophils (%) (Auto) 1 % (0-3) Neutrophils # (Auto) 6.0 x10^3uL (1.8-7.7) Lymphocytes # (Auto) 2.7 x10^3/uL (1.0-4.8) Monocytes # (Auto) 0.6 x10^3/uL (0.0-1.1) Eosinophils # (Auto) 0.2 x10^3/uL (0.0-0.7) Basophils # (Auto) 0.1 x10^3/uL (0.0-0.2) Sodium Level 142 mmol/L (136-145) Potassium Level 4.1 mmol/L (3.5-5.1) Chloride Level 107 mmol/L (98-107) Carbon Dioxide Level 27 mmol/L (21-32) Anion Gap 8 (6-14) Blood Urea Nitrogen 5 mg/dL (7-20) Creatinine 0.7 mg/dL (0.6-1.0) Estimated GFR (Cockcroft-Gault) 92.7 BUN/Creatinine Ratio 7 (6-20) Glucose Level 148 mg/dL (70-99) Calcium Level 7.9 mg/dL (8.5-10.1) Iron Level 17 ug/dL (50-170) Total Iron Binding Capacity 312 ug/dL (250-450) Iron Saturation 5 % (15-34) Total Bilirubin 0.1 mg/dL (0.2-1.0) Aspartate Amino Transf (AST/SGOT) 47 U/L (15-37) Alanine Aminotransferase (ALT/SGPT) 107 U/L (14-59) Alkaline Phosphatase 117 U/L (46-116) Total Protein 6.3 g/dL (6.4-8.2) Albumin 2.8 g/dL (3.4-5.0) Albumin/Globulin Ratio 0.8 (1.0-1.7) Laboratory Tests Test 12/03/16 05:55 White Blood Count 9.5 x10^3/uL (4.0-11.0) Red Blood Count 4.41 x10^6/uL (3.50-5.40) Hemoglobin 10.6 g/dL (12.0-15.5) Hematocrit 33.6 % (36.0-47.0) Mean Corpuscular Volume 76 fL (79-100) Mean Corpuscular Hemoglobin 24 pg (25-35) Mean Corpuscular Hemoglobin Concent 31 g/dL (31-37) Red Cell Distribution Width 18.6 % (11.5-14.5) Platelet Count 224 x10^3/uL (140-400) Neutrophils (%) (Auto) 64 % (31-73) Lymphocytes (%) (Auto) 28 % (24-48) Monocytes (%) (Auto) 6 % (0-9) Eosinophils (%) (Auto) 2 % (0-3) Basophils (%) (Auto) 1 % (0-3) Neutrophils # (Auto) 6.0 x10^3uL (1.8-7.7) Lymphocytes # (Auto) 2.7 x10^3/uL (1.0-4.8) Monocytes # (Auto) 0.6 x10^3/uL (0.0-1.1) Eosinophils # (Auto) 0.2 x10^3/uL (0.0-0.7) Basophils # (Auto) 0.1 x10^3/uL (0.0-0.2) Sodium Level 142 mmol/L (136-145) Potassium Level 4.1 mmol/L (3.5-5.1) Chloride Level 107 mmol/L (98-107) Carbon Dioxide Level 27 mmol/L (21-32) Anion Gap 8 (6-14) Blood Urea Nitrogen 5 mg/dL (7-20) Creatinine 0.7 mg/dL (0.6-1.0) Estimated GFR (Cockcroft-Gault) 92.7 BUN/Creatinine Ratio 7 (6-20) Glucose Level 148 mg/dL (70-99) Calcium Level 7.9 mg/dL (8.5-10.1) Iron Level 17 ug/dL (50-170) Total Iron Binding Capacity 312 ug/dL (250-450) Iron Saturation 5 % (15-34) Total Bilirubin 0.1 mg/dL (0.2-1.0) Aspartate Amino Transf (AST/SGOT) 47 U/L (15-37) Alanine Aminotransferase (ALT/SGPT) 107 U/L (14-59) Alkaline Phosphatase 117 U/L (46-116) Total Protein 6.3 g/dL (6.4-8.2) Albumin 2.8 g/dL (3.4-5.0) Albumin/Globulin Ratio 0.8 (1.0-1.7) Problem List Problems Medical Problems: (1) Abscess of left groin Status: Acute (2) Cellulitis of left groin Status: Acute Problems: DAMEON SANTIAGO MD Dec 03, 2016 11:06
[2016-12-03] MEDS ORDERED: SUCCINYLCHOLINE 200 MG/10 ML VIAL. ONE (11:29)
[2016-12-03] MEDS: IV RINGERS,LACTATED 1000ML 1,000 ML IV SCH ×2 (11:53→21:53)
[2016-12-03] MEDS ORDERED: HYDROcodone/APAP 5/325MG 1 TAB TABLET PO PRN (12:00)
[2016-12-03] MEDS ORDERED: 0.9 % SODIUM CHLORIDE 10 ML DISP.SYRIN. IV PRN (12:00)
[2016-12-03] MEDS ORDERED: KETOROLAC TROMETHAMINE 30 MG/ML INJ. IV PRN (12:00)
--- NOTE | 2016-12-03 12:01 | PDOC ---
BRIEF OPERATIVE NOTE Date: Dec 03, 2016 Pre-Op Diagnosis left groin abscess Post-Op Diagnosis same Procedure Performed incision and drainage left groin abscess Surgeon Rogerio Santiago Anesthesia Type: General Blood Loss min Specimens Obtained cultures Findings left groin abscess Complications none OPerative Note After obtaining informed consent, patient was taken to the operating room and induced under GETA. Patient was prepped and draped over the left groin area. The draining sinus was identified as well as surrounding induration. The sinus was opened more widely using cautery and trisha clamp. Purulent material was evacuated and cultures were obtained. Digital exam was performed and necrotic areas were broken up. A counter incision was made laterally. A moises drain was brought through this and secured using a 3 0 nylon. The wound was packed with iodoform gauze. Sterile dressing was placed over the wound. Patient was transferred to the PACU in a stable condition. All counts were correct, there were no immediate complications. ROGERIO SANTIAGO MD Dec 03, 2016 12:01
[2016-12-03] MEDS: fentaNYL PF VIAL 100 MCG/2 ML VIAL IV PRN ×2 (12:21→12:49)
[2016-12-03] MEDS ORDERED: ENOXAPARIN 40 MG/0.4 ML SYRINGE. SQ SCH (16:00)
[2016-12-03] MEDS: FERROUS SULFATE 325 MG TABLET. PO SCH (16:07)
[2016-12-03] MEDS: VITAMIN B12,B9,B6 COMPLEX 1 TABLET. PO SCH (16:08)
[2016-12-03] MEDS: oxyCODONE/APAP 7.5/325 1 TAB TABLET PO PRN ×2 (16:08→20:28)
[2016-12-03] MEDS: SENNOSIDES/DOCUSATE 8.6/50MG TABLET. PO SCH (20:30)
[2016-12-03] MEDS: PHENAZOPYRIDINE 200 MG TABLET. PO PRN (22:05)
[2016-12-04] MEDS: IV NORMAL SALINE 1000ML BAG 1,000 ML IV SCH (02:00)
[2016-12-04] MEDS: KETOROLAC 15 MG/ML VIAL. IV PRN (02:48)
[2016-12-04 03:00] VITALS: BP 132/75
[2016-12-04] MEDS: CLINDAMYCIN 900MG PREMIX 50 ML IV SCH (06:10)
[2016-12-04] MEDS: PHENAZOPYRIDINE 200 MG TABLET. PO PRN (06:13)
[2016-12-04 07:00] VITALS: BP 119/69
[2016-12-04] MEDS: IV RINGERS,LACTATED 1000ML 1,000 ML IV SCH (07:53)
[2016-12-04] MEDS: SENNOSIDES/DOCUSATE 8.6/50MG TABLET. PO SCH (08:41)
[2016-12-04] MEDS: FERROUS SULFATE 325 MG TABLET. PO SCH (08:41)
[2016-12-04] MEDS: VITAMIN B12,B9,B6 COMPLEX 1 TABLET. PO SCH (08:41)
[2016-12-04] MEDS: oxyCODONE/APAP 7.5/325 1 TAB TABLET PO PRN (08:45)
--- NOTE | 2016-12-04 09:29 | PDOC ---
SURGICAL PROGRESS NOTE Subjective tolerating diet pain improved she is hoping to go home Vital Signs Vital Signs Date Time Temp Pulse Resp B/P (MAP) Pulse Ox O2 Delivery O2 Flow Rate FiO2 12/04/16 08:45 Room Air 12/04/16 07:00 98.2 73 18 119/69 (86) 97 98.2 12/03/16 21:28 2.0 I&O Intake and Output 12/04/16 07:00 Intake Total 2000 ml Output Total 5 ml Balance 1995 ml Intake Oral 950 ml IV Total 1050 ml Estimated Blood Loss 5 ml # Voids 4 General: Alert, Oriented X3, Cooperative, No acute distress Extremities: Other (left groin, some erythema/drainage, moises and packing in place) Labs Laboratory Tests Test 12/02/16 10:40 12/03/16 05:55 Urine Color Stephanie Urine Clarity Turbid Urine pH 6.0 Urine Specific [place] >=1.030 Urine Protein 30 mg/dL (NEG-TRACE) Urine Glucose (UA) 100 mg/dL (NEG) Urine Ketones (Stick) Negative mg/dL (NEG) Urine Blood Negative (NEG) Urine Nitrite Negative (NEG) Urine Bilirubin Negative (NEG) Urine Urobilinogen Dipstick 0.2 mg/dL (0.2 mg/dL) Urine Leukocyte Esterase Negative (NEG) Urine RBC 0 /HPF (0-2) Urine WBC 0 /HPF (0-4) Urine Squamous Epithelial Cells Many /LPF Urine Bacteria 0 /HPF (0-FEW) Urine Mucus Marked /LPF White Blood Count 9.5 x10^3/uL (4.0-11.0) Red Blood Count 4.41 x10^6/uL (3.50-5.40) Hemoglobin 10.6 g/dL (12.0-15.5) Hematocrit 33.6 % (36.0-47.0) Mean Corpuscular Volume 76 fL (79-100) Mean Corpuscular Hemoglobin 24 pg (25-35) Mean Corpuscular Hemoglobin Concent 31 g/dL (31-37) Red Cell Distribution Width 18.6 % (11.5-14.5) Platelet Count 224 x10^3/uL (140-400) Neutrophils (%) (Auto) 64 % (31-73) Lymphocytes (%) (Auto) 28 % (24-48) Monocytes (%) (Auto) 6 % (0-9) Eosinophils (%) (Auto) 2 % (0-3) Basophils (%) (Auto) 1 % (0-3) Neutrophils # (Auto) 6.0 x10^3uL (1.8-7.7) Lymphocytes # (Auto) 2.7 x10^3/uL (1.0-4.8) Monocytes # (Auto) 0.6 x10^3/uL (0.0-1.1) Eosinophils # (Auto) 0.2 x10^3/uL (0.0-0.7) Basophils # (Auto) 0.1 x10^3/uL (0.0-0.2) Sodium Level 142 mmol/L (136-145) Potassium Level 4.1 mmol/L (3.5-5.1) Chloride Level 107 mmol/L (98-107) Carbon Dioxide Level 27 mmol/L (21-32) Anion Gap 8 (6-14) Blood Urea Nitrogen 5 mg/dL (7-20) Creatinine 0.7 mg/dL (0.6-1.0) Estimated GFR (Cockcroft-Gault) 92.7 BUN/Creatinine Ratio 7 (6-20) Glucose Level 148 mg/dL (70-99) Calcium Level 7.9 mg/dL (8.5-10.1) Iron Level 17 ug/dL (50-170) Total Iron Binding Capacity 312 ug/dL (250-450) Iron Saturation 5 % (15-34) Total Bilirubin 0.1 mg/dL (0.2-1.0) Aspartate Amino Transf (AST/SGOT) 47 U/L (15-37) Alanine Aminotransferase (ALT/SGPT) 107 U/L (14-59) Alkaline Phosphatase 117 U/L (46-116) Total Protein 6.3 g/dL (6.4-8.2) Albumin 2.8 g/dL (3.4-5.0) Albumin/Globulin Ratio 0.8 (1.0-1.7) Problem List Problems Medical Problems: (1) Abscess of left groin Status: Acute (2) Cellulitis of left groin Status: Acute Assessment/Plan s/p I&D continue abx, per IPC drain in place for 1 week, she is hoping to DC today--if does remove packing strip prior to dc Problems: 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
[2016-12-04] MEDS ORDERED: AMOX1TAB61 PO (10:34)
--- NOTE | 2016-12-04 10:36 | PDOC3 ---
Discharge Summary Visit Information Date of Admission: Dec 01, 2016 Date of Discharge: Dec 04, 2016 Admitting Diagnosis Comment: cellulitis w/ abcess, groin s/p I and D (12/03) recent miscarriage, tobaccoism, overweight BMI 40 NON diabetic MAGY Final Diagnosis Problems Medical Problems: (1) Abscess of left groin Status: Acute (2) Cellulitis of left groin Status: Acute Brief Hospital Course Allergies Allergies Coded Allergies Type Severity Reaction Last Updated Verified grape Allergy Severe Hives 12/04/16 Yes morphine Allergy Intermediate Itching 10/27/13 Yes Vital Signs Vital Signs Date Time Temp Pulse Resp B/P (MAP) Pulse Ox O2 Delivery O2 Flow Rate FiO2 12/04/16 08:45 Room Air 12/04/16 07:00 98.2 73 18 119/69 (86) 97 98.2 12/03/16 21:28 2.0 Lab Results Laboratory Tests Test 12/02/16 10:40 12/03/16 05:55 Urine Color Stephanie Urine Clarity Turbid Urine pH 6.0 Urine Specific [place] >=1.030 Urine Protein 30 mg/dL (NEG-TRACE) Urine Glucose (UA) 100 mg/dL (NEG) Urine Ketones (Stick) Negative mg/dL (NEG) Urine Blood Negative (NEG) Urine Nitrite Negative (NEG) Urine Bilirubin Negative (NEG) Urine Urobilinogen Dipstick 0.2 mg/dL (0.2 mg/dL) Urine Leukocyte Esterase Negative (NEG) Urine RBC 0 /HPF (0-2) Urine WBC 0 /HPF (0-4) Urine Squamous Epithelial Cells Many /LPF Urine Bacteria 0 /HPF (0-FEW) Urine Mucus Marked /LPF White Blood Count 9.5 x10^3/uL (4.0-11.0) Red Blood Count 4.41 x10^6/uL (3.50-5.40) Hemoglobin 10.6 g/dL (12.0-15.5) Hematocrit 33.6 % (36.0-47.0) Mean Corpuscular Volume 76 fL (79-100) Mean Corpuscular Hemoglobin 24 pg (25-35) Mean Corpuscular Hemoglobin Concent 31 g/dL (31-37) Red Cell Distribution Width 18.6 % (11.5-14.5) Platelet Count 224 x10^3/uL (140-400) Neutrophils (%) (Auto) 64 % (31-73) Lymphocytes (%) (Auto) 28 % (24-48) Monocytes (%) (Auto) 6 % (0-9) Eosinophils (%) (Auto) 2 % (0-3) Basophils (%) (Auto) 1 % (0-3) Neutrophils # (Auto) 6.0 x10^3uL (1.8-7.7) Lymphocytes # (Auto) 2.7 x10^3/uL (1.0-4.8) Monocytes # (Auto) 0.6 x10^3/uL (0.0-1.1) Eosinophils # (Auto) 0.2 x10^3/uL (0.0-0.7) Basophils # (Auto) 0.1 x10^3/uL (0.0-0.2) Sodium Level 142 mmol/L (136-145) Potassium Level 4.1 mmol/L (3.5-5.1) Chloride Level 107 mmol/L (98-107) Carbon Dioxide Level 27 mmol/L (21-32) Anion Gap 8 (6-14) Blood Urea Nitrogen 5 mg/dL (7-20) Creatinine 0.7 mg/dL (0.6-1.0) Estimated GFR (Cockcroft-Gault) 92.7 BUN/Creatinine Ratio 7 (6-20) Glucose Level 148 mg/dL (70-99) Calcium Level 7.9 mg/dL (8.5-10.1) Iron Level 17 ug/dL (50-170) Total Iron Binding Capacity 312 ug/dL (250-450) Iron Saturation 5 % (15-34) Total Bilirubin 0.1 mg/dL (0.2-1.0) Aspartate Amino Transf (AST/SGOT) 47 U/L (15-37) Alanine Aminotransferase (ALT/SGPT) 107 U/L (14-59) Alkaline Phosphatase 117 U/L (46-116) Total Protein 6.3 g/dL (6.4-8.2) Albumin 2.8 g/dL (3.4-5.0) Albumin/Globulin Ratio 0.8 (1.0-1.7) Brief Hospital Course Ms. Evans is a 41 old female, non diabetic admitted for left groin/ almost near the labial abscess needed i and D. Cx grew GB Strep, no fevers, no sepsis, no white ct, SUsceptible to PCN - was getting iV rocephin here. Did get bactrim as OP. I am sending home on PO augmentin, To go home with moises drain and ff up GS 1 week, Rui rn and pt RX in chart Pt seen and examined time 32mins Discharge Information Condition at Discharge: Improved, Stable Follow Up: Weeks (1 week GS) Disposition/Orders: D/C to Home Scheduled Hydrocodone/Apap 5-325 ([place] 5-325 Tablet), 1-2 TAB PO Q4-6HRS Sulfamethoxazole/Trimethoprim (Bactrim Ds Tablet), 1 TAB PO BID Scheduled PRN Hydrocodone/Apap 5-325 ([place] 5-325 Tablet), 1 TAB PO PRN Q6HRS PRN for PAIN JANAE YEAGER MD Dec 04, 2016 10:36
== END 2016-12-04 11:48 | disposition home or self-care (01) | DRG 580 ==
LOC: ER 19:00 → 5 NORTH 20:28
PROVIDERS: ADMIT Internal Medicine; ATTEND Internal Medicine
PROC: 0J9C0ZZ Drainage of Pelvic Region Subcutaneous Tissue and Fascia, Open Approach (ICD-10-PCS; principal; 2016-12-03 11:30)
DX: L03.314 Cellulitis of groin (principal); Z68.41 Body mass index [BMI] 40.0-44.9, adult; N76.4 Abscess of vulva; J45.909 Unspecified asthma, uncomplicated; F41.9 Anxiety disorder, unspecified; G89.29 Other chronic pain; M54.9 Dorsalgia, unspecified; F17.210 Nicotine dependence, cigarettes, uncomplicated; E66.3 Overweight; Z82.49 Family history of ischemic heart disease and other diseases of the circulatory system; Z88.5 Allergy status to narcotic agent; Z90.49 Acquired absence of other specified parts of digestive tract
CPT/HCPCS: 36415; 80048; 80053; 81001; 83540; 83550; 83605; 84145; 85027; 85651; 86140; 87040; 87071; 87075; 87205; 94640; 96374; A6539; J0330; J0690; J0696; J0780; J1100; J1650; J1885; J2001; J2405; J2704; J3010; J3480; J3490; J7030; J7040; J7613; J7620; 99285-25

== ENCOUNTER 2017-09-25 20:08 | Emergency (ER) | payer SELFPAY ==
[2017-09-25] MEDS: LIDOCAINE WITH 8.4% SOD BICARB 3 ML DISP.SYRIN. INJ (21:18)
== END 2017-09-25 21:19 | disposition home or self-care (01) ==
LOC: ER 20:08
DX: L02.31 Cutaneous abscess of buttock (principal); G89.29 Other chronic pain; M54.9 Dorsalgia, unspecified; Z90.49 Acquired absence of other specified parts of digestive tract; Z90.89 Acquired absence of other organs
CPT/HCPCS: 10060; 99283

== ENCOUNTER 2018-01-04 15:07 | Emergency (ER) | payer SELFPAY ==
[~2018-01-04] VITALS: Ht 162.6 cm; Wt 81.6 kg
[~2018-01-04 15:07] MED LIST changes: +AMOX1TAB61 PO; +CEPH500T PO; +DOXY100T PO; +IBUP-1060 PO
[2018-01-04 16:00] LABS: BILIRUBIN,URINE NEGATIVE (NEG); CLARITY,URINE CLEAR; COLOR,URINE YELLOW; NITRITE,URINE NEGATIVE (NEG); PH,URINE 5.5; PROTEIN,URINE NEGATIVE (NEG-TRACE); UROBILINOGEN,URINE 0.2 mg/dL (0.2 mg/dL)
[2018-01-04 16:05] LABS: BACTERIA,URINE 0 /HPF (0-FEW); RBC,URINE 0 /HPF (0-2); SQUAMOUS EPITHELIAL CELL,UR MOD /LPF; WBC,URINE OCC /HPF (0-4)
[2018-01-04 16:46] VITALS: BP 119/78
--- NOTE | 2018-01-04 16:55 | RAD ---
Pelvic ultrasound History: Right lower quadrant pain. Comparison: None. Technique: Transabdominal ultrasound was performed. Findings: The uterus measures 10.0 cm in length and is unremarkable. The endometrium measures 6 mm. Right ovary measures 1.9 x 2.6 x 1.7 cm and demonstrates small follicle. The left ovary measures 3.4 x 2.1 x 1.9 cm and is unremarkable. No adnexal masses are identified. No significant free fluid is identified within the pelvis. Both ovaries demonstrate normal vascular flow upon Doppler interrogation and are without evidence of torsion. Impression: 1. Unremarkable pelvic ultrasound. Electronically signed by: Sky Jameson MD (01/04/2018 4:51 PM) [facility]
--- NOTE | 2018-01-04 17:02 | PHYS DOC ---
Past Medical History Past Medical History: Asthma, Other Additional Past Medical Histor: chronic back pain Past Surgical History: Cholecystectomy, Tonsillectomy Alcohol Use: Rarely Drug Use: None Adult General Chief Complaint Chief Complaint: ABDOMINAL PAIN HPI HPI Patient is a 42 year old [f__sex] who presents with [] Review of Systems Review of Systems Constitutional: Denies fever or chills [] Eyes: Denies change in visual acuity, redness, or eye pain [] HENT: Denies nasal congestion or sore throat [] Respiratory: Denies cough or shortness of breath [] Cardiovascular: No additional information not addressed in HPI [] GI: Denies abdominal pain, nausea, vomiting, bloody stools or diarrhea [] : Denies dysuria or hematuria [] Musculoskeletal: Denies back pain or joint pain [] Integument: Denies rash or skin lesions [] Neurologic: Denies headache, focal weakness or sensory changes [] Endocrine: Denies polyuria or polydipsia [] All other systems were reviewed and found to be within normal limits, except as documented in this note. Allergies Allergies Allergies Coded Allergies Type Severity Reaction Last Updated Verified grape Allergy Severe Hives 12/04/16 Yes morphine Allergy Intermediate Itching 10/27/13 Yes Physical Exam Physical Exam Constitutional: Well developed, well nourished, no acute distress, non-toxic appearance. [] HENT: Normocephalic, atraumatic, bilateral external ears normal, oropharynx moist, no oral exudates, nose normal. [] Eyes: PERRLA, EOMI, conjunctiva normal, no discharge. [] Neck: Normal range of motion, no tenderness, supple, no stridor. [] Cardiovascular:Heart rate regular rhythm, no murmur [] Lungs & Thorax: Bilateral breath sounds clear to auscultation [] Abdomen: Bowel sounds normal, soft, no tenderness, no masses, no pulsatile masses. [] Skin: Warm, dry, no erythema, no rash. [] Back: No tenderness, no CVA tenderness. [] Extremities: No tenderness, no cyanosis, no clubbing, ROM intact, no edema. [] Neurologic: Alert and oriented X 3, normal motor function, normal sensory function, no focal deficits noted. [] Psychologic: Affect normal, judgement normal, mood normal. [] Current Patient Data Vital Signs Vital Signs Date Time Temp Pulse Resp B/P (MAP) Pulse Ox O2 Delivery O2 Flow Rate FiO2 01/04/18 15:30 99.0 97 18 130/78 (95) 96 Room Air 99.0 Lab Values Laboratory Tests Test 01/04/18 15:30 01/04/18 15:32 Urine Collection Type Unknown Urine Color Yellow Urine Clarity Clear Urine pH 5.5 Urine Specific [place] >=1.030 Urine Protein Negative mg/dL (NEG-TRACE) Urine Glucose (UA) >=1000 mg/dL (NEG) Urine Ketones (Stick) Negative mg/dL (NEG) Urine Blood Negative (NEG) Urine Nitrite Negative (NEG) Urine Bilirubin Negative (NEG) Urine Urobilinogen Dipstick 0.2 mg/dL (0.2 mg/dL) Urine Leukocyte Esterase Negative (NEG) Urine RBC 0 /HPF (0-2) Urine WBC Occ /HPF (0-4) Urine Squamous Epithelial Cells Mod /LPF Urine Bacteria 0 /HPF (0-FEW) POC Urine HCG, Qualitative Hcg negative (Negative) EKG EKG [] Radiology/Procedures Radiology/Procedures [] Course & Med Decision Making Course & Med Decision Making Pertinent Labs and Imaging studies reviewed. (See chart for details) [] Dragon Disclaimer Dragon Disclaimer This electronic medical record was generated, in whole or in part, using a voice recognition dictation system. Departure Departure Impression: Primary Impression: Abdominal pain Disposition: HOME, SELF-CARE Condition: STABLE Referrals: NO PCP (PCP) Patient Instructions: Abdominal Pain (Nonspecific) Additional Instructions: Follow-up with your primary care provider or electrical technology instructor for further evaluation of your cramping an abnormally heavy periods. If worsening return to the emergency department. You may take ibuprofen or Tylenol for pain. PETER CORRALES HUMAN FACTORS ENGINEER Jan 04, 2018 17:02
== END 2018-01-04 17:06 | disposition home or self-care (01) ==
LOC: ER 15:07
DX: R10.9 Unspecified abdominal pain (principal); J45.909 Unspecified asthma, uncomplicated; Z90.49 Acquired absence of other specified parts of digestive tract; Z90.89 Acquired absence of other organs; Z88.5 Allergy status to narcotic agent; Z91.018 Allergy to other foods
CPT/HCPCS: 76856; 81001; 81025; 99285-25

== ENCOUNTER 2019-07-04 13:15 | Emergency (ER) | payer OTHER ==
[~2019-07-04] VITALS: Ht 167.6 cm; Wt 77.2 kg
[~2019-07-04 13:15] MED LIST changes: +HYDR-3164 PO; -HYDR-971 PO
[2019-07-04 13:44] VITALS: BP 133/74
[2019-07-04] MEDS ORDERED: SULF1TAB24 PO (14:48)
[2019-07-04] MEDS ORDERED: CEPH500C PO (14:48)
[2019-07-04] MEDS ORDERED: HYDR-2761 PO (14:48)
--- NOTE | 2019-07-04 14:49 | PHYS DOC ---
Past Medical History Past Medical History: Asthma, Other Additional Past Medical Histor: chronic back pain Past Surgical History: Cholecystectomy, Tonsillectomy Smoking Status: Current Every Day Smoker Alcohol Use: Rarely Drug Use: None Adult General Chief Complaint Chief Complaint: ABSCESS HPI HPI Patient is a 43 year old female who presents to the emergency department with complaints of a vulvar abscess for the last 4 days. Patient denies any bleeding or drainage from the site. She states that she has had 3 prior abscesses in the same area. She denies any fever, abdominal pain, nausea, vomiting, diarrhea, dysuria, hematuria, or increased urinary frequency. She currently rates her pain a 10 out of 10 on the pain scale, the pain increases if any pressure was applied to the area. Review of Systems Review of Systems All other ROS is negative unless otherwise noted in HPI. Allergies Allergies Allergies Coded Allergies Type Severity Reaction Last Updated Verified grape Allergy Severe Hives 12/04/16 Yes morphine Allergy Intermediate Itching 10/27/13 Yes Physical Exam Physical Exam See Above Constitutional: Well developed, well nourished, no acute distress, non-toxic appearance. [] HENT: Normocephalic, atraumatic, bilateral external ears normal, oropharynx moist, no oral exudates, nose normal. [] Eyes: PERRLA, EOMI, conjunctiva normal, no discharge. [] Neck: Normal range of motion, no stridor. [] Cardiovascular:Heart rate regular rhythm Lungs & Thorax: Respirations even and unlabored, no retractions, no respiratory distress Pelvic Exam: Fur Buyer present External Genitalia: ERYTHEMA AND EDEMA OF LEFT VULVA, NO VISIBLE PUSTULE, NON-FLUCTUANT Skin: Warm, dry, no erythema, no rash. [] Extremities: No cyanosis, ROM intact Neurologic: Alert and oriented X 3, no focal deficits noted. [] Psychologic: Affect normal, judgement normal, mood normal. [] Current Patient Data Vital Signs Vital Signs Date Time Temp Pulse Resp B/P (MAP) Pulse Ox O2 Delivery O2 Flow Rate FiO2 07/04/19 13:44 97.9 103 16 133/74 (93) 97 Room Air 97.9 EKG EKG [] Radiology/Procedures Radiology/Procedures [] Course & Med Decision Making Course & Med Decision Making Pertinent Labs and Imaging studies reviewed. (See chart for details) [] Dragon Disclaimer Dragon Disclaimer This electronic medical record was generated, in whole or in part, using a voice recognition dictation system. Departure Departure Impression: Primary Impression: Vulvar abscess Disposition: 01 HOME, SELF-CARE Condition: STABLE Referrals: UNKNOWN PCP NAME (PCP) Patient Instructions: Vulvar Abscess, [id number] Additional Instructions: Fill the prescriptions and use as directed. Apply warm moist heat and take sitz baths as discussed. Follow up with your OBGyn this week, return to the ER if symptoms worsen or you develop a fever. Scripts Hydrocodone Bit/Acetaminophen (HYDROCODONE-APAP 5-325 ) 1 Tab Tablet 1 TAB PO PRN Q6HRS PRN for PAIN for 3 Days, #10 TAB 0 Refills Prov: JEFFREY DAVILA APRN 07/04/19 Cephalexin (CEPHALEXIN) 500 Mg Capsule 1 CAP PO QID for 10 Days, #40 CAP 0 Refills Prov: JEFFREY DAVILA APRN 07/04/19 Sulfamethoxazole/Trimethoprim (BACTRIM DS TABLET) 1 Each Tablet 1 TAB PO BID for 10 Days, #20 TAB 0 Refills Prov: JEFFREY DAVILA APRN 07/04/19 JEFFREY DAVILA APRN Jul 04, 2019 14:49
== END 2019-07-04 15:06 | disposition home or self-care (01) ==
LOC: ER 13:15
DX: N76.4 Abscess of vulva (principal); G89.29 Other chronic pain; J45.909 Unspecified asthma, uncomplicated; Z90.49 Acquired absence of other specified parts of digestive tract; F17.200 Nicotine dependence, unspecified, uncomplicated; Z88.5 Allergy status to narcotic agent; Z91.018 Allergy to other foods
CPT/HCPCS: 99283

== ENCOUNTER 2019-10-14 21:11 | Emergency (ER) | payer OTHER ==
[~2019-10-14] VITALS: Ht 170.2 cm; Wt 81.0 kg
[~2019-10-14 21:11] MED LIST changes: +CEPH500C PO; +HYDR-2761 PO
[2019-10-14 21:23] VITALS: BP 133/74
[2019-10-14] MEDS ORDERED: CEPH500T PO (22:02)
[2019-10-14] MEDS ORDERED: DOXY100C2 PO (22:02)
[2019-10-14] MEDS ORDERED: HYDR-3164 PO (22:02)
--- NOTE | 2019-10-14 22:03 | PHYS DOC ---
Past Medical History Past Medical History: Asthma, Diabetes-Type II, Other Additional Past Medical Histor: chronic back pain Past Surgical History: Cholecystectomy, Tonsillectomy Additional Past Surgical Histo: tubal ligation Smoking Status: Current Every Day Smoker Alcohol Use: Rarely Drug Use: None General Adult EDM: Chief Complaint: SKIN PROBLEM HPI: HPI: Patient is a 44 year old female who presents with complaint of right ear pain and swelling around the earlobe. She states that swelling and started a couple of days ago and she noticed some purulent drainage from the back of the ear that started yesterday. She states that her tried to mash on it but was not able to really get anything else out. She states that it is now more swollen however. She rates pain in her ear at about an 8 out of 10. She denies any fever. She denies any trauma to the ear. She does indicate that she has had a history of abscesses in the past. [] Review of Systems: Review of Systems: Constitutional: Denies fever or chills. [] Respiratory: Denies cough or shortness of breath. [] Cardiovascular: Denies chest pain or edema. [] Integument: Positive right earlobe pain and swelling. [] Neurologic: Denies headache, focal weakness or sensory changes. [] Heart Score: Risk Factors: Risk Factors: DM, Current or recent (<one month) smoker, HTN, HLP, family history of CAD, obesity. Risk Scores: Score 0 - 3: 2.5% MACE over next 6 weeks - Discharge Home Score 4 - 6: 20.3% MACE over next 6 weeks - Admit for Clinical Observation Score 7 - 10: 72.7% MACE over next 6 weeks - Early Invasive Strategies Allergies: Allergies: Allergies Coded Allergies Type Severity Reaction Last Updated Verified grape Allergy Severe Hives 12/04/16 Yes morphine Allergy Intermediate Itching 10/27/13 Yes Physical Exam: PE: Constitutional: Well developed, well nourished, no acute distress, non-toxic appearance. [] HENT: Normocephalic, atraumatic, right earlobe demonstrates moderate soft tissue swelling, warmth and erythema. There is no induration and no fluctuance noted. [] Neck: Normal range of motion, no tenderness, supple, with a couple of enlarged posterior cervical lymph nodes. [] Cardiovascular: Regular rate and rhythm [] Lungs & Thorax: Bilateral breath sounds clear to auscultation [] Current Patient Data: Vital Signs: Vital Signs Date Time Temp Pulse Resp B/P (MAP) Pulse Ox O2 Delivery O2 Flow Rate FiO2 10/14/19 21:23 98.6 18 133/74 (93) 97 Room Air 98.6 EKG: EKG: [] Radiology/Procedures: Radiology/Procedures: [] Course & Med Decision Making: Course & Med Decision Making Pertinent Labs and Imaging studies reviewed. (See chart for details) [] Dragon Disclaimer: Dragon Disclaimer: This electronic medical record was generated, in whole or in part, using a voice recognition dictation system. Departure Departure Impression: Primary Impression: Cellulitis of right earlobe Disposition: HOME, SELF-CARE Condition: STABLE Referrals: UNKNOWN PCP NAME (PCP) Patient Instructions: Cellulitis Scripts Doxycycline Hyclate (DOXYCYCLINE HYCLATE) 100 Mg Capsule 1 CAP PO BID, #20 CAP Prov: BALA ZAIDI Jr. DO 10/14/19 Cephalexin (CEPHALEXIN) 500 Mg Tablet 2 TAB PO BID, #40 TAB Prov: BALA ZAIDI Jr. DO 10/14/19 Hydrocodone/Apap 5-325 ([place] 5-325 TABLET) 1 Each Tablet 1-2 EACH PO PRN Q6HRS PRN for PAIN, #15 as needed for pain Prov: BALA ZAIDI Jr. DO 10/14/19 BALA ZAIDI Jr. DO October 14, 2019 22:03
[2019-10-14] MEDS ORDERED: ceFAZolin IM 1 GM VIAL IM ONE (22:30)
[2019-10-14] MEDS ORDERED: DOXYCYCLINE HYCLATE 100 MG TABLET PO ONE (22:30)
== END 2019-10-14 22:40 | disposition home or self-care (01) ==
LOC: ER 21:11
DX: H60.11 Cellulitis of right external ear (principal); R60.0 Localized edema; J45.909 Unspecified asthma, uncomplicated; E11.9 Type 2 diabetes mellitus without complications; G89.29 Other chronic pain; F17.200 Nicotine dependence, unspecified, uncomplicated; Z90.49 Acquired absence of other specified parts of digestive tract; Z90.89 Acquired absence of other organs; Z98.51 Tubal ligation status; Z88.6 Allergy status to analgesic agent; Z91.018 Allergy to other foods
CPT/HCPCS: 96372; 99283; J0690